=== PATIENT | female | born 1955 | race Hispanic/Latino ===

== ENCOUNTER 2019-04-10 13:38 | Emergency (ER) | payer OTHER, MEDICARE ==
[2019-04-10 14:03] LABS: CREATININE 0.8 mg/dL (0.5-1.5); POTASSIUM 3.7 mmol/L (3.5-5.1)
[2019-04-10 14:04] LABS: INR 0.99 (0.85-1.15); PROTHROMBIN TIME 10.4 SEC (9.6-11.6)
[2019-04-10 14:08] LABS: ALBUMIN 3.6 g/dL (3.5-5.0); BILIRUBIN,TOTAL 1.2 mg/dL (0.2-1.0); TOTAL PROTEIN, SERUM 7.7 g/dL (6.0-8.3)
[2019-04-10 14:13] LABS: BASOPHILS % (AUTO) 0.9 % (0.0-5.0); EOSINOPHILS % (AUTO) 1.6 % (0.0-8.0); HEMATOCRIT 43.1 % (36-48); LYMPHOCYTES % (AUTO) 35.3 % (21.0-51.0); MEAN CORPUSCULAR HEMOGLOBIN 32.8 pg (27.0-33.0); MEAN CORPUSCULAR HGB CONC 34.2 g/dL (32.0-36.0); MEAN CORPUSCULAR VOLUME 95.9 fL (79-99); MONOCYTES % (AUTO) 6.9 % (3.0-13.0); NEUTROPHILS % (AUTO) 55.3 % (40.0-77.0); NUCLEATED RED BLOOD CELLS 0.1 % (0.0-0.19); PLATELET COUNT (AUTO) 221 K/uL (130-400); RED BLOOD CELL COUNT(AUTO) 4.49 MIL/uL (4.00-5.50); RED CELL DISTRIBUTION WIDTH 13.3 % (11.0-15.5); WHITE BLOOD COUNT (AUTO) 6.4 K/uL (4.8-10.8)
[2019-04-10] MEDS ORDERED: LORAZEPAM 2 MG/ML 1 ML VIAL ONE (14:21)
== END 2019-04-10 16:37 | disposition home or self-care (01) ==
LOC: EDH 13:38
DX: R07.89 Other chest pain (principal); F32.9 Major depressive disorder, single episode, unspecified; F41.9 Anxiety disorder, unspecified; I10 Essential (primary) hypertension; K21.9 Gastro-esophageal reflux disease without esophagitis
CPT/HCPCS: 36415; 71045; 80053; 83880; 84484 ×2; 85025; 85610; 85730; 93005 ×2; 96374; 99285; J2060

== ENCOUNTER → 2020-02-24 | Outpatient (CLI) | payer OTHER, MEDICARE | END | disposition home or self-care (01) | LOC: RAH 14:28 | PROVIDERS: ATTEND Family Medicine | DX: Z12.31 Encounter for screening mammogram for malignant neoplasm of breast (principal) | CPT/HCPCS: 77067 ==

== ENCOUNTER → 2020-08-10 | Outpatient (CLI) | payer OTHER, MEDICARE ==
[~2020-08-10] MED LIST: IOHEXOL 350 MG/ML 100ML INFUS..BTL IV ONE
== END | disposition home or self-care (01) ==
LOC: RAH 10:53
PROVIDERS: ATTEND Family Medicine
DX: R91.1 Solitary pulmonary nodule (principal); K44.9 Diaphragmatic hernia without obstruction or gangrene; R79.89 Other specified abnormal findings of blood chemistry
CPT/HCPCS: 71275; Q9967

== ENCOUNTER 2020-11-04 15:55 | Emergency (ER) | payer OTHER, MEDICARE ==
[~2020-11-04] VITALS: Ht 162.6 cm; Wt 92.5 kg
[2020-11-04 15:57] VITALS: BP 111/69
[2020-11-04 16:43] LABS: BASOPHILS % (AUTO) 0.3 % (0.0-5.0); EOSINOPHILS % (AUTO) 1.4 % (0.0-8.0); HEMATOCRIT 40.7 % (36-48); LYMPHOCYTES % (AUTO) 34.7 % (21.0-51.0); MEAN CORPUSCULAR HEMOGLOBIN 31.8 pg (27.0-33.0); MEAN CORPUSCULAR HGB CONC 32.9 g/dL (32.0-36.0); MEAN CORPUSCULAR VOLUME 96.4 fL (79-99); MONOCYTES % (AUTO) 7.3 % (3.0-13.0); NEUTROPHILS % (AUTO) 56.1 % (40.0-77.0); PLATELET COUNT (AUTO) 235 K/uL (130-400); RED BLOOD CELL COUNT(AUTO) 4.22 MIL/uL (4.00-5.50); RED CELL DISTRIBUTION WIDTH 12.9 % (11.0-15.5); WHITE BLOOD COUNT (AUTO) 9.6 K/uL (4.8-10.8)
[2020-11-04 16:57] LABS: CREATININE 0.8 mg/dL (0.5-1.5); POTASSIUM 4.2 mmol/L (3.5-5.1)
[2020-11-04 17:01] LABS: ALBUMIN 3.5 g/dL (3.5-5.0); BILIRUBIN,TOTAL 0.7 mg/dL (0.2-1.0); TOTAL PROTEIN, SERUM 7.6 g/dL (6.0-8.3)
[2020-11-04] MEDS ORDERED: ONDANSETRON 4MG INJ IVP SCH (17:45)
[2020-11-04 18:05] LABS: APPEARANCE,URINE SLIGHTLY CLOUDY (CLEAR); BILIRUBIN,URINE Negative (NEGATIVE); COLOR,URINE Dark Yellow (YELLOW); GLUCOSE, URINE (UA) Negative (NEGATIVE); KETONES,URINE Trace mg/dL (NEGATIVE); LEUKOCYTE ESTERASE ,URINE Negative (NEGATIVE); NITRATE,URINE Negative (NEGATIVE); OCCULT BLOOD,URINE Trace (NEGATIVE); PH,URINE 5.5 (5.0-8.0); PROTEIN,URINE Trace mg/dL (NEGATIVE)
[2020-11-04 18:11] LABS: BACTERIA,URINE None Seen /HPF (None Seen); CALCIUM OXALATE CRYSTALS,UR Moderate /LPF (None Seen); MUCUS,URINE Few LPF (None Seen); RBC,URINE 0-1 /HPF (0-1); SQUAMOUS EPITHELIAL CELL,UR Rare /HPF (0-2); WBC,URINE None Seen /HPF (0-1)
[2020-11-04 18:17] VITALS: BP 135/84
[2020-11-04 19:31] VITALS: BP 127/69
[2020-11-04] MEDS ORDERED: HYDR25CA PO (19:49)
== END 2020-11-04 20:03 | disposition home or self-care (01) ==
LOC: EDH 15:55
DX: G43.909 Migraine, unspecified, not intractable, without status migrainosus (principal); F41.9 Anxiety disorder, unspecified; R11.0 Nausea; I10 Essential (primary) hypertension; F32.9 Major depressive disorder, single episode, unspecified; Z79.899 Other long term (current) drug therapy
CPT/HCPCS: 36415; 80053; 81001; 82150; 83690; 85025; 96374; 99283; J2405

== ENCOUNTER 2021-09-02 14:45 | Emergency (ER) | payer OTHER, MEDICARE ==
[~2021-09-02] VITALS: Ht 162.6 cm; Wt 91.6 kg
[~2021-09-02 14:45] MED LIST changes: +HYDR25CA PO; -IOHEXOL 350 MG/ML 100ML INFUS..BTL IV ONE
[2021-09-02 14:46] VITALS: BP 165/67
[2021-09-02 15:17] LABS: APPEARANCE,URINE Clear (CLEAR); BILIRUBIN,URINE Negative (NEGATIVE); COLOR,URINE Yellow (YELLOW); GLUCOSE, URINE (UA) Negative (NEGATIVE); KETONES,URINE Negative (NEGATIVE); LEUKOCYTE ESTERASE ,URINE Negative (NEGATIVE); NITRATE,URINE Negative (NEGATIVE); OCCULT BLOOD,URINE Small (NEGATIVE); PH,URINE 5.5 (5.0-8.0); PROTEIN,URINE Negative (NEGATIVE); UROBILINOGEN,URINE 0.2 mg/dL (0.2-1.0)
[2021-09-02 15:25] LABS: BACTERIA,URINE Rare /HPF (None Seen); WBC,URINE 0-1 /HPF (0-1)
[2021-09-02 15:26] LABS: MUCUS,URINE Few LPF (None Seen); SQUAMOUS EPITHELIAL CELL,UR Few /HPF (0-2)
[2021-09-02] MEDS ORDERED: 0.9%NACL 1000ML 1,000 ML IV ONE (16:00)
[2021-09-02 16:20] LABS: BASOPHILS % (AUTO) 0.4 % (0.0-5.0); EOSINOPHILS % (AUTO) 2.5 % (0.0-8.0); HEMATOCRIT 42.2 % (36-48); LYMPHOCYTES % (AUTO) 42.5 % (21.0-51.0); MEAN CORPUSCULAR HEMOGLOBIN 31.6 pg (27.0-33.0); MEAN CORPUSCULAR HGB CONC 32.7 g/dL (32.0-36.0); MEAN CORPUSCULAR VOLUME 96.6 fL (79-99); MONOCYTES % (AUTO) 5.6 % (3.0-13.0); NEUTROPHILS % (AUTO) 48.9 % (40.0-77.0); PLATELET COUNT (AUTO) 208 K/uL (130-400); RED BLOOD CELL COUNT(AUTO) 4.37 MIL/uL (4.00-5.50); WHITE BLOOD COUNT (AUTO) 7.1 K/uL (4.8-10.8)
[2021-09-02 16:23] LABS: CREATININE 0.7 mg/dL (0.5-1.5); POTASSIUM 4.5 mmol/L (3.5-5.1)
[2021-09-02 16:28] LABS: ALBUMIN 3.8 g/dL (3.5-5.0); BILIRUBIN,TOTAL 0.8 mg/dL (0.2-1.0); TOTAL PROTEIN, SERUM 7.6 g/dL (6.0-8.3)
[2021-09-02] MEDS ORDERED: KETOROLAC 15MG/ML VIAL (15MG/ML) IV ONE (17:30)
[2021-09-02] MEDS ORDERED: ONDANSETRON 4MG INJ IVP ONE (17:30)
[2021-09-02] MEDS ORDERED: MORPHINE 4 MG SYG IVP ONE (17:30)
[2021-09-02] MEDS ORDERED: TRAM50TA2 PO (18:35)
== END 2021-09-02 19:07 | disposition home or self-care (01) ==
LOC: EDH 14:45
DX: R10.9 Unspecified abdominal pain (principal); E78.00 Pure hypercholesterolemia, unspecified; F41.9 Anxiety disorder, unspecified; I10 Essential (primary) hypertension
CPT/HCPCS: 36415; 74176; 80053; 81001; 85025; 96374; 96375; 99284; J1885; J2270; J2405; J7030

== ENCOUNTER → 2022-08-18 | Outpatient (CLI) | payer OTHER, MEDICARE ==
[~2022-08-18] MED LIST changes: +APIX5TAB PO; +ATOR10TA69 PO; +CEPH500C2 PO; +D-ME118S56 PO; +DILT240C94 PO; +ESOM40CA54 PO; +GABA-529 PO; +TRAM50TA2 PO
[2022-08-18 12:51] LABS: ALBUMIN 3.4 g/dL (3.5-5.0); CREATININE 0.7 mg/dL (0.5-1.5); POTASSIUM 3.8 mmol/L (3.5-5.1); TOTAL PROTEIN, SERUM 7.2 g/dL (6.0-8.3)
== END | disposition home or self-care (01) ==
LOC: LAB 09:29
PROVIDERS: ATTEND Internal Medicine Cardiovascular Disease
DX: I10 Essential (primary) hypertension (principal); E78.00 Pure hypercholesterolemia, unspecified
CPT/HCPCS: 36415; 80053; 80061

== ENCOUNTER 2022-10-10 16:57 | Emergency (ER) | payer OTHER, MEDICARE ==
[~2022-10-10] VITALS: Ht 162.6 cm; Wt 97.5 kg
[~2022-10-10 16:57] MED LIST changes: +DILT240C81 PO; -DILT240C94 PO
[2022-10-10] MEDS ORDERED: ONDANSETRON 4MG INJ IVP ONE (18:30)
[2022-10-10 19:59] LABS: BASOPHILS % (AUTO) 0.2 % (0.0-5.0); EOSINOPHILS % (AUTO) 0.4 % (0.0-8.0); HEMATOCRIT 43.7 % (36-48); LYMPHOCYTES % (AUTO) 7.4 % (21.0-51.0); MEAN CORPUSCULAR HEMOGLOBIN 30.5 pg (27.0-33.0); MEAN CORPUSCULAR HGB CONC 32.7 g/dL (32.0-36.0); MEAN CORPUSCULAR VOLUME 93.2 fL (79-99); MONOCYTES % (AUTO) 3.4 % (3.0-13.0); NEUTROPHILS % (AUTO) 88.3 % (40.0-77.0); PLATELET COUNT (AUTO) 231 K/uL (130-400); RED BLOOD CELL COUNT(AUTO) 4.69 MIL/uL (4.00-5.50); WHITE BLOOD COUNT (AUTO) 9.5 K/uL (4.8-10.8)
[2022-10-10 20:18] LABS: CREATININE 0.7 mg/dL (0.5-1.5); POTASSIUM 3.9 mmol/L (3.5-5.1)
[2022-10-10 20:23] LABS: ALBUMIN 3.8 g/dL (3.5-5.0); TOTAL PROTEIN, SERUM 7.9 g/dL (6.0-8.3)
[2022-10-10] MEDS ORDERED: IOHEXOL-350 75 ML VIAL IV ONE (21:04)
[2022-10-10 22:45] VITALS: BP 151/78
[2022-10-10 23:08] LABS: APPEARANCE,URINE CLEAR (CLEAR); BILIRUBIN,URINE NEGATIVE (NEGATIVE); COLOR,URINE YELLOW (YELLOW); GLUCOSE, URINE (UA) NEGATIVE (NEGATIVE); KETONES,URINE 10 mg/dL (NEGATIVE); LEUKOCYTE ESTERASE ,URINE NEGATIVE Leu/uL (NEGATIVE); NITRATE,URINE NEGATIVE (NEGATIVE); OCCULT BLOOD,URINE MODERATE (NEGATIVE); PROTEIN,URINE 30 mg/dL (NEGATIVE); UROBILINOGEN,URINE 0.2 mg/dL (0.2-1.0)
[2022-10-10 23:17] LABS: MUCUS,URINE FEW LPF (None Seen); RBC,URINE 26-50 /HPF (0-1); SQUAMOUS EPITHELIAL CELL,UR RARE /HPF (0-2)
== END 2022-10-10 23:08 | disposition home or self-care (01) ==
LOC: EDH 16:57
DX: K44.9 Diaphragmatic hernia without obstruction or gangrene (principal); R11.2 Nausea with vomiting, unspecified; I10 Essential (primary) hypertension; F32.A Depression, unspecified; F41.9 Anxiety disorder, unspecified; Z79.899 Other long term (current) drug therapy; Z90.49 Acquired absence of other specified parts of digestive tract; Z20.822 Contact with and (suspected) exposure to COVID-19
CPT/HCPCS: 99285; 74177; 96374; 87635; 84484; 80053; 85025; 87880; 87804 ×2; 83605; 81001; 36415; 93005; C9803; J2405; Q9967

== ENCOUNTER → 2022-10-27 | Outpatient (CLI) | payer OTHER, MEDICARE | END | disposition home or self-care (01) | LOC: RAH 09:33 | PROVIDERS: ATTEND Family Medicine | DX: M25.511 Pain in right shoulder (principal); M25.512 Pain in left shoulder; M81.8 Other osteoporosis without current pathological fracture | CPT/HCPCS: 73030 ==

== ENCOUNTER → 2022-11-19 | Outpatient (CLI) | payer OTHER, MEDICARE ==
[2022-11-19 12:20] LABS: ALBUMIN 3.4 g/dL (3.5-5.0); CREATININE 0.8 mg/dL (0.5-1.5); POTASSIUM 4.2 mmol/L (3.5-5.1); TOTAL PROTEIN, SERUM 7.3 g/dL (6.0-8.3)
== END | disposition home or self-care (01) ==
LOC: LAB 08:29
PROVIDERS: ATTEND Internal Medicine Cardiovascular Disease
DX: E78.5 Hyperlipidemia, unspecified (principal)
CPT/HCPCS: 36415; 80053; 80061

== ENCOUNTER 2022-11-25 00:35 | Emergency (ER) | payer OTHER, MEDICARE ==
[~2022-11-25] VITALS: Ht 167.6 cm; Wt 102.1 kg
[2022-11-25 03:56] VITALS: BP 133/73
[2022-11-25] MEDS ORDERED: HYDROXYZINE 25 MG TABLET PO ONE (05:00)
[2022-11-25] MEDS ORDERED: HYDR50CA50 PO (05:14)
== END 2022-11-25 05:30 | disposition home or self-care (01) ==
LOC: EDH 00:35
DX: I10 Essential (primary) hypertension (principal); F41.9 Anxiety disorder, unspecified; E78.00 Pure hypercholesterolemia, unspecified; Z79.01 Long term (current) use of anticoagulants
CPT/HCPCS: 93005

== ENCOUNTER → 2023-07-06 | Outpatient (CLI) | payer OTHER, MEDICARE ==
[~2023-07-06] MED LIST changes: +HYDR50CA50 PO
[2023-07-06 16:39] LABS: ALBUMIN 3.2 g/dL (3.5-5.0); CREATININE 0.7 mg/dL (0.5-1.5)
== END | disposition home or self-care (01) ==
LOC: LAB 14:40
PROVIDERS: ATTEND Internal Medicine Cardiovascular Disease
DX: E78.00 Pure hypercholesterolemia, unspecified (principal)
CPT/HCPCS: 36415; 80053; 80061

== ENCOUNTER 2024-01-12 10:45 | Emergency (ER) | payer OTHER, MEDICARE ==
[~2024-01-12] VITALS: Ht 162.6 cm; Wt 92.5 kg
[~2024-01-12 10:45] MED LIST changes: -ESOM40CA54 PO; +ESOM40CA66 PO
[2024-01-12 10:48] VITALS: BP 143/67; PULSE 75; RESP 18; TEMP 97
[2024-01-12] MEDS: acetaMINOPHEN 500 MG TABLET PO ONE (11:18)
[2024-01-12] MEDS: PHENAZOPYRIDINE HCL 200 MG TABLET PO ONE (11:18)
[2024-01-12 11:19] LABS: BASOPHILS # (AUTO) 0.03 K/uL (0.00-0.20); BASOPHILS % (AUTO) 0.4 % (0.0-5.0); EOSINOPHILS % (AUTO) 1.3 % (0.0-8.0); HEMATOCRIT 41.5 % (36-48); IMMATURE GRANULOCYTE ABSOLUTE 0.02 K/uL (0-1); LYMPHOCYTES # (AUTO) 2.3 K/uL (1.0-4.8); LYMPHOCYTES % (AUTO) 30.2 % (21.0-51.0); MEAN CORPUSCULAR HEMOGLOBIN 32.6 pg (27.0-33.0); MEAN CORPUSCULAR VOLUME 98.8 fL (79-99); MONOCYTES # (AUTO) 0.5 K/uL (0.1-1.0); MONOCYTES % (AUTO) 6.1 % (3.0-13.0); NEUTROPHILS # (AUTO) 4.6 K/uL (1.8-7.7); NEUTROPHILS % (AUTO) 61.7 % (40.0-77.0); PLATELET COUNT (AUTO) 218 K/uL (130-400); RED CELL DISTRIBUTION WIDTH 13.4 % (11.0-15.5); WHITE BLOOD COUNT (AUTO) 7.5 K/uL (4.8-10.8)
[2024-01-12 11:23] LABS: POTASSIUM 4.1 mmol/L (3.5-5.1)
[2024-01-12 11:42] LABS: APPEARANCE,URINE CLOUDY (CLEAR); BILIRUBIN,URINE MODERATE mg/dL (NEGATIVE); COLOR,URINE YELLOW (YELLOW); GLUCOSE, URINE (UA) 100 mg/dL (NEGATIVE); KETONES,URINE 5 mg/dL (NEGATIVE); LEUKOCYTE ESTERASE ,URINE SMALL Leu/uL (NEGATIVE); NITRATE,URINE POSITIVE (NEGATIVE); OCCULT BLOOD,URINE LARGE (NEGATIVE); PROTEIN,URINE 100 mg/dL (NEGATIVE)
[2024-01-12 11:47] LABS: ADD UA MICROSCOPIC YES
[2024-01-12] MEDS ORDERED: PHEN-776 PO (12:32)
[2024-01-12] MEDS ORDERED: AMOX1TAB16 PO (12:32)
[2024-01-12 12:33] LABS: BACTERIA,URINE Few /HPF (None Seen); CALCIUM OXALATE CRYSTALS,UR Few /LPF (None Seen); WBC,URINE 26-50 /HPF (0-1)
[2024-01-12] MEDS: AMOX/CLAV 875/125MG TAB PO ONE (12:33)
== END 2024-01-12 12:54 | disposition home or self-care (01) ==
LOC: EDH 10:45
DX: N30.01 Acute cystitis with hematuria (principal); R30.0 Dysuria; E78.00 Pure hypercholesterolemia, unspecified; I10 Essential (primary) hypertension; F41.9 Anxiety disorder, unspecified; Z79.899 Other long term (current) drug therapy; Z90.49 Acquired absence of other specified parts of digestive tract; Z98.890 Other specified postprocedural states
CPT/HCPCS: 36415; 80048; 81001; 85025; 87086; 87186

== ENCOUNTER → 2024-06-03 | Outpatient (CLI) | payer OTHER, MEDICARE ==
[~2024-06-03] MED LIST changes: +AMOX1TAB16 PO; +PHEN-776 PO
--- NOTE | 2024-06-03 11:36 | HMCIMG ---
SCREENING MAMMOGRAM REASON: Annual Exam COMPARISON: 09/15/2022 TECHNIQUE: CC and MLO views of the bilateral breasts were performed.CAD was performed as well. FINDINGS: Parenchymal density: The breasts are almost entirely fatty. There are no focal mass lesions. There are no pathologic appearing calcifications. There is no evidence of architectural distortion or skin thickening. IMPRESSION: Normal screening mammogram The patient was entered into a reminder system with a target due date for their next mammogram. BI-RADS CATEGORY 1: NEGATIVE Recommend monthly self breast exam as well as annual clinical examination. A negative x-ray should not delay biopsy if a dominant or clinically suspicious mass is present, since 8-10% of cancers are not identified by mammography. Dense breasts particularly, may obscure an underlying neoplasm. Some of these may be detected clinically and therefore, clinical examination is an essential part of breast evaluation.
== END | disposition home or self-care (01) ==
LOC: RAH 10:00
PROVIDERS: ATTEND Family Medicine
DX: Z12.31 Encounter for screening mammogram for malignant neoplasm of breast (principal); R92.313 Mammographic fatty tissue density, bilateral breasts
CPT/HCPCS: 77067

== ENCOUNTER 2025-01-02 17:00 | Inpatient (IN) | payer OTHER, MEDICAID ==
[~2025-01-02] VITALS: Ht 162.6 cm; Wt 88.0 kg
--- NOTE | 2025-01-02 17:24 | EKG ---
[facility] Test Date: 2025-01-02 Test Time: 17:19:22 Pat Name: CJ ROLLINS Department: ED Room: 320 Gender: F [employer] Player: [id number] : 1955 Requested By: MILAN SALAS Order Number: [id number] Reading MD: Samuel Ugalde Measurements Intervals Dante Rate: 77 P: 58 VA: 89 QRS: -31 QRSD: 95 T: 6 QT: 392 QTc: 443 Interpretive Statements Sinus rhythm Left axis deviation Compared to ECG 11/25/2022 03:55:50 Left-axis deviation now present Electronically Signed On 01-03-2025 19:41:33 CDT by Samuel Ugalde Please click the below link to view image of tracing.
[2025-01-02 17:54] LABS: IMMATURE GRANULOCYTE ABSOLUTE 0.02 K/uL (0-1); NUCLEATED RED BLOOD CELLS 0.0 % (0.0-0.19); PLATELET COUNT (AUTO) 173 K/uL (130-400); RED BLOOD CELL COUNT(AUTO) 3.92 MIL/uL (4.00-5.50); RED CELL DISTRIBUTION WIDTH 12.7 % (11.0-15.5); WHITE BLOOD COUNT (AUTO) 7.0 K/uL (4.8-10.8)
[2025-01-02 18:02] LABS: CREATININE 0.7 mg/dL (0.5-1.0); GLOMERULAR FILTR. RATE CALC 93.0 mL/min (>90); GLUCOSE,RANDOM 110.0 mg/dL (70-105); SODIUM SERUM 141.0 mmol/L (136-145); UREA NITROGEN, BLOOD 14.0 mg/dL (7-18)
[2025-01-02 18:15] LABS: APPEARANCE,URINE CLEAR (CLEAR); GLUCOSE, URINE (UA) NEGATIVE (NEGATIVE); LEUKOCYTE ESTERASE ,URINE NEGATIVE Leu/uL (NEGATIVE); NITRATE,URINE NEGATIVE (NEGATIVE); OCCULT BLOOD,URINE +- (TRACE) (NEGATIVE)
[2025-01-02 18:18] LABS: ADD UA MICROSCOPIC YES
[2025-01-02 18:20] LABS: SQUAMOUS EPITHELIAL CELL,UR RARE /HPF (0-2)
[2025-01-02] MEDS ORDERED: IOHEXOL 350 MG/ML 100ML INFUS..BTL IV ONE (19:44)
--- NOTE | 2025-01-02 19:52 | ERN ---
ED Note History of Present Illness Stated Complaint: BLOODY STOOLS X 3 WEEKS Chief Complaint: Bloody Stool Time Seen by MD: 17:04 Time Seen by Midlevel: 17:06 Dictation: 69-year-old female sent from PCP's office for evaluation of dark stools for the last three weeks. 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 Patient denies any abdominal discomfort. Allergies: Coded Allergies: No Known Drug Allergies (Unverified Allergy, 09/28/12) Home Meds Reported Medications Mecobalamin (B12 Active) 1,000 Mcg Tab.chew, 1 TAB PO DAILY for 30 Days, #30 TAB 0 Refills 01/02/25 [Folate] No Conflict Check, 400 MG PO DAILY 01/02/25 Rivaroxaban (Xarelto) 20 Mg Tablet, 1 TAB PO DAILY for 30 Days, #30 TAB 0 Refills with food 01/02/25 Alendronate Sodium (Alendronate Sodium) 70 Mg Tablet, 1 TAB PO QWEEK for 28 Days, #4 TAB 0 Refills in the morning, at least 30 minutes before the first food, beverage, or medication of the day 01/02/25 [Ergocalciferol] No Conflict Check, 1.25 MG PO QWEEK 01/02/25 Losartan Potassium (Losartan Potassium) 100 Mg Tablet, 1 TAB PO HS for 30 Days, #30 TAB 0 Refills 01/02/25 Hydrochlorothiazide (Hydrochlorothiazide) 12.5 Mg Tablet, 1 TAB PO DAILY PRN for IF SBP GREATER THAN 180 for 30 Days, #30 TAB 0 Refills 01/02/25 Diltiazem HCl (Diltiazem ER) 240 Mg Cap.er.deg, 1 CAP PO DAILY for 30 Days, #30 CAP 0 Refills 01/02/25 Atorvastatin Calcium (LIPITOR) 10 Mg Tab, 1 TAB PO HS for 30 Days, #30 TAB 0 Refills 01/02/25 Buspirone HCl (Buspirone HCl) 10 Mg Tablet, 1 TAB PO BID for 30 Days, #60 TAB 0 Refills 01/02/25 Esomeprazole Magnesium (Esomeprazole Magnesium) 40 Mg Capsule.dr, 1 CAP PO DAILY for 30 Days, #30 CAP 0 Refills 01/02/25 Gabapentin (Neurontin) 300 Mg Capsule, 1 CAP PO TID for 30 Days, #90 CAP 0 Refills 01/02/25 Discontinued Reported Medications Diltiazem HCl (Diltiazem ER) 240 Mg Capsule.er, 1 CAP PO QDP 03/16/22 Atorvastatin Calcium (Atorvastatin Calcium) 10 Mg Tablet, 1 TAB PO QDP 03/16/22 Gabapentin (Gabapentin) 100 Mg Capsule, 100 MG PO HS, CAP 03/16/22 Esomeprazole Magnesium (Esomeprazole Magnesium) 40 Mg Capsule.dr, 1 CAP PO QDP 03/16/22 Cephalexin (Cephalexin) 500 Mg Capsule, 1 CAP PO BID 03/16/22 D-Methorphan Hb/P-Epd HCl/Bpm (Ugvysnllox-Xmvjepxzwsi-Il Syr) 118 Ml Syrup, 10 ML PO Q6HPRN PRN for COUGH 03/16/22 Discontinued Scripts Phenazopyridine HCl (Pyridium) 200 Mg Tablet, 200 MG PO TID for painful urination for 3 Days, #9 TAB 0 Refills Prov:DIEUDONNE BELL TAILOR FITTER 01/12/24 Amoxicillin/Potassium Clav (Amox Tr-K Clv 875-125 mg Tab) 875 Mg-125 Mg Tablet, 1 EACH PO BID for 7 Days, #14 TAB 0 Refills Prov:DIEUDONNE BELL TAILOR FITTER 01/12/24 Hydroxyzine Pamoate (Hydroxyzine Pamoate) 50 Mg Capsule, 50 MG PO BID for Anxiety , #30 CAP 2 Refills Prov:ROB LOFTON Sr., MD 11/25/22 Apixaban (Eliquis) 5 Mg Tablet, 5 MG PO BID for RIght leg DVT, #90 TAB Prov:INOCENCIA GAO ELECTRICAL CONTROLS ASSEMBLER 03/19/22 Apixaban (Eliquis) 5 Mg Tablet, 10 MG PO BID, #10 TAB take 10 remaining tablet 10 mg po bid then change to 5 mg po bid for 3 months Prov:INOCENCIA GAO ELECT[employer]ICAL CONTROLS ASSEMBLER 03/19/22 Tramadol HCl (Ultram) 50 Mg Tab, 50 MG PO Q6H PRN for PAIN, #7 TAB Prov:CAROLYN URBINA CAB WORKER 09/02/21 Hydroxyzine Pamoate (Vistaril) 25 Mg Capsule, 25 MG PO TID for anxiety, #15 CAP Prov:RICHIE MARSHALL MD 11/04/20 Past Medical History Past Medical History: Anxiety, Diverticulosis, DVT, Fibromyalgia, GERD, High Cholesterol, Hypertension Surgical History: Cholecystectomy, Other Surgical History Other: HERNIA REPAIR, INTERNAL HEMMORHOIDS Family History: Negative Social History: Negative History: Not Applicable Review of System Dictation Constitutional: Negative for fever,chills, and weight loss Eyes: Negative for injury, pain,redness, and discharge ENT: Negative for injury,pain or swelling Cardiovascular: Negative for chest pain, palpitations, and edema Respiratory: Negative for shortness of breath, cough, and wheezing, Abdomen/GI: Negative for abdominal pain, nausea, vomiting, diarrhea, and constipation Back: Negative for injury and pain : Negative for injury, bleeding and discharge MS/Extremity: Negative for injury and deformity Skin: Negative for rash, and discoloration Neuro: Negative for headache, weakness, numbness, tingling, and seizure Psych: Negative for suicide ideation, homicidal ideation, and hallucinations Review of Systems: was completed Initial Vital Sign VS Vital Signs Date Time Temp Pulse Resp B/P (MAP) Pulse Ox O2 Delivery O2 Flow Rate FiO2 01/02/25 17:01 98.6 91 16 158/74 96 Room Air 0 01/02/25 17:32 21 Physical Exam Dictation General: awake, alert, NAD Head/Face: Normocephalic, atraumatic Eyes: PERRL, EOMI, vision at baseline ENT: oral cavity clear, TMs clear, no signs of infection Neck: Trachea midline, supple, no nuchal rigidity Cardiovascular: RRR, normal S1/S2, No MRGs, no JVD Respiratory: CTAB, no respiratory distress, No rales or wheezes Abdomen: Soft, non-tender, non-distended, normal bowel sounds, no guarding or rebound. Skin: Warm, dry, normal turgor, no rash MS/Extremity: Pulses equal, no cyanosis, neurovascular intact, FROM Neuro: COAx4, GCS 15, strength 5/5, CN 2-12 intact, normal cerebellar exam, normal gait, Psych: Normal behavior, mood, and affect normal Results (Laboratory/Radiology) Laboratory/Radiology Laboratory Tests Test 01/02/25 15:27 01/02/25 17:22 01/02/25 17:43 Stool Occult Blood POSITIVE (NEGATIVE) H Urine Color YELLOW (YELLOW) Urine Appearance CLEAR (CLEAR) Urine pH 6.0 (5.0-8.0) Urine Specific [place] 1.031 (1.001-1.031) Urine Protein 10 mg/dL (NEGATIVE) H Urine Glucose (UA) NEGATIVE mg/dL (NEGATIVE) Urine Ketones NEGATIVE mg/dL (NEGATIVE) Urine Occult Blood +- (TRACE) (NEGATIVE) H Urine Nitrate NEGATIVE (NEGATIVE) Urine Bilirubin NEGATIVE mg/dL (NEGATIVE) Urine Urobilinogen 2.0 mg/dL (0.2-1.0) H Urine Leukocyte Esterase NEGATIVE Mary/uL Urine RBC 11-25 /HPF (0-1) H Urine WBC 2-5 /HPF (0-1) H Urine Squamous Epithelial Cells RARE /HPF (0-2) Urine Bacteria RARE /HPF (None Seen) Urine Hyaline Casts 2-5 /LPF (0-1 /LPF) H White Blood Count 7.0 K/uL (4.8-10.8) Red Blood Count 3.92 MIL/uL (4.00-5.50) L Hemoglobin 12.6 g/dL (12.0-16.0) Hematocrit 37.1 % (36-48) Mean Corpuscular Volume 94.6 fL (79-99) Mean Corpuscular Hemoglobin 32.1 pg (27.0-33.0) Mean Corpuscular Hemoglobin Concent 34.0 g/dL (32.0-36.0) Red Cell Distribution Width 12.7 % (11.0-15.5) Platelet Count 173 K/uL (130-400) Mean Platelet Volume 10.0 fL (7.5-10.5) Immature Granulocyte % (Auto) 0.3 % (0-1) Neutrophils (%) (Auto) 56.5 % (40.0-77.0) Lymphocytes (%) (Auto) 33.1 % (21.0-51.0) Monocytes (%) (Auto) 7.2 % (3.0-13.0) Eosinophils (%) (Auto) 2.6 % (0.0-8.0) Basophils (%) (Auto) 0.3 % (0.0-5.0) Neutrophils # (Auto) 3.9 K/uL (1.8-7.7) Lymphocytes # (Auto) 2.3 K/uL (1.0-4.8) Monocytes # (Auto) 0.5 K/uL (0.1-1.0) Eosinophils # (Auto) 0.18 K/uL (0.00-0.70) Basophils # (Auto) 0.02 K/uL (0.00-0.20) Absolute Immature Granulocyte (auto 0.02 K/uL (0-1) Nucleated Red Blood Cells 0.0 % (0.0-0.19) Sodium Level 141 mmol/L (136-145) Potassium Level 3.8 mmol/L (3.5-5.1) Chloride Level 107 mmol/L (101-111) Carbon Dioxide Level 28 mmol/L (21-32) Blood Urea Nitrogen 14 mg/dL (7-18) Creatinine 0.7 mg/dL (0.5-1.0) Glomerular Filtration Rate Calc 93 mL/min (>90) Random Glucose 110 mg/dL (70-105) H Total Calcium 9.0 mg/dL (8.5-10.1) Labs Reviewed?: Yes CT Scan Comment: [address] [address] IMAGING REPORT Signed PATIENT: CJ ROLLINS MR#: [id number] : 1955 SEX: F AGE: 69 LOCATION: [facility] ORDER 56 STATUS: [facility] REPORT#: [id number] SERVICE 55 REASON: gi bleed ORDERING PHYSICIAN: MILAN SALAS NP PROCEDURE: ABD PEL W - CT ABDOMEN/PELVIS W/CONTRAST EXAM: CT Abdomen and Pelvis with IV contrast CLINICAL HISTORY: Patient presents with gastrointestinal bleeding. TECHNIQUE: Post-contrast axial computed tomography images of the abdomen and pelvis with intravenous contrast. COMPARISON: None provided. FINDINGS: LUNG BASES: The lung bases appear clear. No pleural effusions are seen. LIVER: Unremarkable. GALLBLADDER AND BILE DUCTS: The gallbladder is surgically absent. No biliary ductal dilatation is evident. PANCREAS: Unremarkable. SPLEEN: Unremarkable. ADRENAL GLANDS: Unremarkable. KIDNEYS, URETERS, AND BLADDER: Right renal cyst in the lower pole measuring 0.6 x 0.6 x 0.6 cm. Left renal parapelvic cyst. The kidneys show no hydronephrosis or hydroureter. The urinary bladder is incompletely distended at the time of examination, limiting evaluation for possible wall thickening. In the appropriate clinical setting, mild cystitis cannot be excluded; recommended clinical correlation. STOMACH AND BOWEL: Colonic diverticulosis with short segment circumferential wall thickening in the sigmoid colon, with subtle pericolonic fat stranding concerning for sigmoid diverticulitis. Mild constipation. No evidence of bowel obstruction. APPENDIX: No evidence of acute appendicitis on CT examination. PERITONEUM: No free fluid. No free air. LYMPH NODES: No lymphadenopathy is evident. REPRODUCTIVE: Unremarkable as visualized. VASCULATURE: No evidence of abdominal aortic aneurysm. BONES: Multilevel mild degenerative changes of the spine. Mild lumbar levoscoliosis. No acute osseous pathology is evident. DIAPHRAGM: Elevated right hemidiaphragm. ABDOMINAL WALL: Moderate-sized hiatal hernia. IMPRESSION: Scattered colonic diverticula with questionable subtle acute sigmoid diverticulitis. No abscess or perforation. The gallbladder is surgically absent. Left renal parapelvic cyst. Right renal cortical cyst. Moderate-sized hiatal hernia. Elevated right hemidiaphragm. Urinary bladder incompletely distended; in the appropriate clinical setting, mild cystitis cannot be excluded. /[place] DICTATED BY: THUY WALKER Jr., MD DATE: 01/02/252221 ELECTRONICALLY SIGNED BY: THUY WALKER Jr., MD DATE: 01/02/252221 ED Course ED Course Orders Procedure Category Date Status Time Cbc With Differential LAB 01/02/25 Complete 17:09 Basic Metabolic Panel LAB 01/02/25 Complete 17:09 Occult Blood Stool LAB 01/02/25 Complete Single Only 17:09 12 Lead Ekg Tracing- EKG 01/02/25 Complete Technical 17:09 Urinalysis Profile LAB 01/02/25 Complete 17:56 Ct Abdomen/Pelvis CT 01/02/25 Resulted W/Contrast 17:56 Iohexol (Omnipaque) PHA 01/02/25 Complete 19:44 Metronidazole PHA 01/02/25 Complete 500mg/100ml Bag 21:28 Ceftriaxone 1g Vial PHA 01/02/25 Complete (Rocephine 1g Inj) 21:28 Current Medications Medications (Trade) Dose Ordered Sig/Richard Route PRN Reason Start Time Stop Time Status Last Admin Dose Admin Ceftriaxone Sodium (ROCEphine 1G INJ) 1 gm ONCE STAT IVPB 01/02/25 21:28 01/02/25 21:31 DC 01/02/25 21:51 Iohexol (Omnipaque) 35,000 mg STK-MED ONCE IV 01/02/25 19:44 01/02/25 19:44 DC Metronidazole/ Sodium Chloride (flaGYL) 500 mg ONCE STAT IV 01/02/25 21:28 01/02/25 21:31 DC 01/02/25 22:16 Vital Signs Date Time Temp Pulse Resp B/P (MAP) Pulse Ox O2 Delivery O2 Flow Rate FiO2 01/02/25 20:15 98.4 74 18 149/54 96 Room Air* 0 21 01/02/25 18:21 98.4 74 18 147/71 97 Room Air* 0 21 01/02/25 17:32 99.9 81 18 158/74 98 Room Air* 0 21 01/02/25 17:01 98.6 91 16 158/74 96 Room Air 0 Medical Decision Making MDM MDM: 69-year-old female sent from PCP's office for evaluation of dark stools for the last three weeks. 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 Patient denies any abdominal discomfort. Blood work unremarkable. CT scan is showing possible sigmoid diverticulitis. Occult blood is positive. On rectal exam there is no anamaria blood in rectal vault. Patient initiated on antibiotics. Patient will be admitted for diverticulitis started routine consult we will GI. Spoke to Levar LITTLE for benchmark, okay to admit. Differential diagnosis: GI bleed, hemorrhoids Rationale: Tests considered and ordered secondary to shared decision making include: Previous outside records reviewed: Old ER visits. Risk of complication and/or morbidity or mortality of patient management: None Medications-Per medication reconciliation Need for hospitalization: Patient does not meet criteria for hospitalization. Need for emergency major/minor surgery: No There are no social concerns with this patient. Prescription drug management Prescriptions will include symptomatic care Patient's prior external medical records from other ER visits were reviewed by me as indicated. Prior testing and results from previous visits were reviewed. Prior tests were taken into account with medical decision making and resource utilization, independent historian/historians were used to obtain complete medical history. I independently interpreted the test that were performed, results were reviewed by me and considered findings on radiology if ordered. Medical management and examination interpretation discussions were had by me with other qualified healthcare professionals as indicated for the patient's care. DX & DISP Disposition: Inpatient Decision to Admit Date: Jan 02, 2025 Decision to Admit Time: 22:24 Departure Impression: Primary Impression: Diverticulitis Additional Impression: GI bleed Condition: Stable Referrals: LEE PAULINO MD (PCP) Time of Disposition: 22:25 I have reviewed the case, and I agree with, Diagnosis and Plan MILAN SALAS NP Jan 02, 2025 19:52
--- NOTE | 2025-01-02 21:23 | HMCIMG ---
EXAM: CT Abdomen and Pelvis with IV contrast CLINICAL HISTORY: Patient presents with gastrointestinal bleeding. TECHNIQUE: Post-contrast axial computed tomography images of the abdomen and pelvis with intravenous contrast. COMPARISON: None provided. FINDINGS: LUNG BASES: The lung bases appear clear. No pleural effusions are seen. LIVER: Unremarkable. GALLBLADDER AND BILE DUCTS: The gallbladder is surgically absent. No biliary ductal dilatation is evident. PANCREAS: Unremarkable. SPLEEN: Unremarkable. ADRENAL GLANDS: Unremarkable. KIDNEYS, URETERS, AND BLADDER: Right renal cyst in the lower pole measuring 0.6 x 0.6 x 0.6 cm. Left renal parapelvic cyst. The kidneys show no hydronephrosis or hydroureter. The urinary bladder is incompletely distended at the time of examination, limiting evaluation for possible wall thickening. In the appropriate clinical setting, mild cystitis cannot be excluded; recommended clinical correlation. STOMACH AND BOWEL: Colonic diverticulosis with short segment circumferential wall thickening in the sigmoid colon, with subtle pericolonic fat stranding concerning for sigmoid diverticulitis. Mild constipation. No evidence of bowel obstruction. APPENDIX: No evidence of acute appendicitis on CT examination. PERITONEUM: No free fluid. No free air. LYMPH NODES: No lymphadenopathy is evident. REPRODUCTIVE: Unremarkable as visualized. VASCULATURE: No evidence of abdominal aortic aneurysm. BONES: Multilevel mild degenerative changes of the spine. Mild lumbar levoscoliosis. No acute osseous pathology is evident. DIAPHRAGM: Elevated right hemidiaphragm. ABDOMINAL WALL: Moderate-sized hiatal hernia. IMPRESSION: Scattered colonic diverticula with questionable subtle acute sigmoid diverticulitis. No abscess or perforation. The gallbladder is surgically absent. Left renal parapelvic cyst. Right renal cortical cyst. Moderate-sized hiatal hernia. Elevated right hemidiaphragm. Urinary bladder incompletely distended; in the appropriate clinical setting, mild cystitis cannot be excluded. /[place]
[2025-01-02] MEDS ORDERED: ESOM40CA66 PO (22:14)
[2025-01-02] MEDS ORDERED: ATOR10 PO (22:14)
[2025-01-02] MEDS ORDERED: MECO10005 PO (22:14)
[2025-01-02] MEDS ORDERED: BUSP10TA3 PO (22:14)
[2025-01-02] MEDS ORDERED: GABA300C PO (22:14)
[2025-01-02] MEDS ORDERED: DILT-118 PO (22:14)
[2025-01-02] MEDS ORDERED: ALEN70TA80 PO (22:14)
[2025-01-02] MEDS ORDERED: FOLATE PO (22:14)
[2025-01-02] MEDS ORDERED: HYDR12.54 PO (22:14)
[2025-01-02] MEDS ORDERED: RIVA20TA PO (22:14)
[2025-01-02] MEDS ORDERED: LOSA100T59 PO (22:14)
[2025-01-02] MEDS ORDERED: ERGOCALCIFEROL PO (22:14)
--- NOTE | 2025-01-02 22:46 | HP ---
[facility] HISTORY & PHYSICAL Date Patient Seen: Jan 02, 2025 Time of Visit: 22:45 Supervising Physician: [Dr. Gregorio Eli ] Primary Care Physician: [Dr. Shahla Acevedo ] Outpatient Specialists: [ ] Inpatient Consults: [Dr. Rey Chacko] PROBLEM LIST: GI bleed-POA Diverticulitis-POA HX of DVT on Xarelto PLAN: -Admit [facility] -Serial H&H q6h -Type and screen, transfuse if Hg drops below 7 -Avoid NSAIDs and blood thinner, hold Xarelto at this time -Consult GI, Dr. Chacko, appreciate recx; pending eval -IV fluids -Continue IV Rocephin and Flagyl for intra-abdominal coverage -Keep patient NPO -Manage abdominal pain and N/V PRN -IV Protonix BID HPI: [Patient is a 69-year-old female with PMH significant for left lower extremity DVT on Xarelto, HTN, HLD, and GERD who was presented to the ED concerning report of hematochezia and melena onset 3 weeks ago. Patient claims that in the beginning, she had been having black stool now she noticed it has become red with an average of 2 to 3 times a day of bowel movement. Pertinent positives include nausea and dizziness. Significant negatives are fever, chills, vomiting, abdominal pain , hemorrhoids or syncope. At the ED, her preliminary lab works were unremarkable, hemoglobin stable. However her FOBT was positive for occult. CT AP was significant for acute sigmoid diverticulitis without abscess or perforation. We will start the patient on IV Rocephin and Flagyl. Physical assessment was unrevealing without abdominal tenderness, signs of ischemia or peritonitis. Goals of care were discussed with the patient verbalizes understanding and agreement. PAST MEDICAL HX: see above PAST SURGICAL HX: noncontributory SOCIAL HISTORY: No tobacco, ETOH, or illicit drug use Coded Allergies: No Known Drug Allergies (Unverified Allergy, 09/28/12) REVIEW OF SYSTEMS: 12 point ROS reviewed with patient. Pertinent positives mentioned above. Otherwise negative. PHYSICAL EXAM: GENERAL: alert, awake oriented x 3 HEENT: EOMI, Sclera non icteric, moist mucosa NECK: Supple, no JVD, trachea midline LUNGS: Clear breath sounds bilaterally. No wheezes HEART: Regular rate and rhythm. Normal S1 and S2, without murmurs ABD: Abdomen soft, nontender. Bowel sounds present EXT: No clubbing cyanosis or edema NEURO: Alert and oriented to person, follows commands Vital Signs (last 8hr) Date Time Temp Pulse Resp B/P (MAP) Pulse Ox O2 Delivery O2 Flow Rate FiO2 01/02/25 20:15 98.4 74 18 149/54 96 Room Air* 0 21 01/02/25 18:21 98.4 74 18 147/71 97 Room Air* 0 01/02/25 17:32 99.9 81 18 158/74 98 Room Air* 0 01/02/25 17:01 98.6 91 16 158/74 96 Room Air 0 LABS: Hematology Labs: Test 01/02/25 17:43 Range/Units White Blood Count 7.0 4.8-10.8 K/uL Red Blood Count 3.92 L 4.00-5.50 MIL/uL Hemoglobin 12.6 12.0-16.0 g/dL Hematocrit 37.1 36-48 % Mean Corpuscular Volume 94.6 79-99 fL Mean Corpuscular Hemoglobin 32.1 27.0-33.0 pg Mean Corpuscular Hemoglobin Concent 34.0 32.0-36.0 g/dL Red Cell Distribution Width 12.7 11.0-15.5 % Platelet Count 173 130-400 K/uL Mean Platelet Volume 10.0 7.5-10.5 fL Immature Granulocyte % (Auto) 0.3 0-1 % Neutrophils (%) (Auto) 56.5 40.0-77.0 % Lymphocytes (%) (Auto) 33.1 21.0-51.0 % Monocytes (%) (Auto) 7.2 3.0-13.0 % Eosinophils (%) (Auto) 2.6 0.0-8.0 % Basophils (%) (Auto) 0.3 0.0-5.0 % Neutrophils # (Auto) 3.9 1.8-7.7 K/uL Lymphocytes # (Auto) 2.3 1.0-4.8 K/uL Monocytes # (Auto) 0.5 0.1-1.0 K/uL Eosinophils # (Auto) 0.18 0.00-0.70 K/uL Basophils # (Auto) 0.02 0.00-0.20 K/uL Absolute Immature Granulocyte (auto 0.02 0-1 K/uL Nucleated Red Blood Cells 0.0 0.0-0.19 % Chemistry Labs: Test 01/02/25 17:43 Range/Units Sodium Level 141 136-145 mmol/L Potassium Level 3.8 3.5-5.1 mmol/L Chloride Level 107 101-111 mmol/L Carbon Dioxide Level 28 21-32 mmol/L Blood Urea Nitrogen 14 7-18 mg/dL Creatinine 0.7 0.5-1.0 mg/dL Glomerular Filtration Rate Calc 93 >90 mL/min Random Glucose 110 H 70-105 mg/dL Total Calcium 9.0 8.5-10.1 mg/dL DIAGNOSTICS / RADIOLOGY RESULTS: [ ] PLAN NEURO: Minimize central acting medications as possible. Maintain fall precautions, adequate lighting during the day PULMONARY: Supplemental 02 as needed. Maintain aspiration precautions at all times CARDIOVASCULAR: Follow hemodynamics. Vital signs per facility protocol GI & NUTRITION: Continue with nutritional support. Continue stool softeners and laxatives as needed. KIDNEYS & ELECTROLYTES: Strict monitoring of intake, output and overall fluid balance. Avoid nephrotoxic medications to the extent possible. Medications to be dosed according to renal function. Monitor electrolytes and replace as needed ENDOCRINE: Maintain blood glucose between 100-180 at all times. Hypoglycemia protocol in place INFECTIOUS DISEASE: Trend temperature, WBC and procalcitonin level Follow cultures, deescalate antibiotics as soon as possible. Panculture if new onset fever ONCOLOGY/HEMATOLOGY/COAGULATION: Monitor for s/s of bleeding Monitor hemoglobin, coagulation studies as needed SKIN: Pressure ulcer prevention per facility protocol Specialty mattress ORTHO/REHAB: Continue PT/OT Prophylaxis: Continue GI and DVT prophylaxis. SCD, no AC due to GI bleed Code Status: Full Resuscitation Disposition: [facility] Jan 02, 2025 22:46
[2025-01-02] MEDS: 0.9%NACL 1000ML 1,000 ML IV SCH (23:17)
[2025-01-02 23:28] LABS: INR 1.03 (0.85-1.15)
--- NOTE | 2025-01-02 23:31 | NUR ---
PT CARE ASSUMED AT THIS TIME
--- NOTE | 2025-01-02 23:56 | NUR ---
REPORT GIVEN TO JB LOCKE AT THIS TIME
[2025-01-03] VITALS (7 sets, daily range): BP systolic 124–166; BP diastolic 72–80; PULSE 64–76; RESP 18–20; TEMP 97.5–98.3; O2SAT 95–96
--- NOTE | 2025-01-03 00:47 | NUR ---
ADMISSION NOTE PATIENT ARRIVED VIA STRETCHER ALERT AND ORIENTED X 4. PATIENT AMBULATED SELF TO ROOM, NURSE ASSISTED PATIENT TO BATHROOM TO VOID. PATIENT ASSISTED BACK TO BED, HANDHELD ASSIST. PATIENT INFUSING NS TO RIGHT HAND IV, NO REDNESS, NO SWELLING TO RIGHT HAND. PATIENT ARRIVED WITH ONLY BELONGING OF BLACK CELLPHONE. NO FAMILY PRESENT AT TIME OF ADMISSION. PATIENT IS GOOD HISTORIAN OF HEALTH. PATIENT STATED DOES NOT KNOW ANY OF THE NAMES OF HOME MEDICATIONS BECAUSE MEDICATIONS ARE GIVEN BY PROVIDER AND DAUGHTER. PATIENT STATES DOES NOT DRIVE, BUT DOES LIVE ON HER OWN. PATIENT ORIENTED TO PLAN OF CARE, ROOM, LIGHTING, TV, BATHROOM, IV PUMP, DIET, CALL BUTTON AND REMOTE CONTROL. BED ALARM ARMED, PATIENT INSTRUCTED TO CALL BY PUSHING RED BUTTON ON REMOTE TO NOTIFY STAFF MEMBER SO THAT STAFF MAY ASSIST WITH DISCONNECTING OF IV PUMP TO USE BATHROOM. CALL BUTTON AND PATIENT CELLPHONE WITHIN REACH ON BEDSIDE TABLE.
[2025-01-03 06:03] LABS: IMMATURE GRANULOCYTE ABSOLUTE 0.03 K/uL (0-1); NUCLEATED RED BLOOD CELLS 0.0 % (0.0-0.19); PLATELET COUNT (AUTO) 210 K/uL (130-400); RED BLOOD CELL COUNT(AUTO) 3.82 MIL/uL (4.00-5.50); RED CELL DISTRIBUTION WIDTH 12.6 % (11.0-15.5); WHITE BLOOD COUNT (AUTO) 7.2 K/uL (4.8-10.8)
--- NOTE | 2025-01-03 06:04 | NUR ---
BM NO BLACK OR BLOODY STOOL THROUGHOUT SHIFT SINCE ARRIVED FROM ED. PATIENT AWAKE, ALERT AND ORIENTED X 4, DENIES PAIN AT THIS TIME.
[2025-01-03 06:16] LABS: % IRON SATURATION 20.8 % (22-44); IRON, SERUM 52.0 mcg/dL (50-170)
[2025-01-03 06:20] LABS: CREATININE 0.8 mg/dL (0.5-1.0); GLOMERULAR FILTR. RATE CALC 79.0 mL/min (>90); GLUCOSE,RANDOM 80.0 mg/dL (70-105); PHOSPHORUS 3.0 mg/dL (2.5-4.9); SODIUM SERUM 144.0 mmol/L (136-145); UREA NITROGEN, BLOOD 11.0 mg/dL (7-18)
--- NOTE | 2025-01-03 13:20 | PN ---
[facility] PROGRESS NOTE Date Patient Seen: Jan 03, 2025 Time of Visit: 13:20 Supervising Physician: Dr. Gregorio Eli Primary Care Physician: Dr. Shahla Acevedo Inpatient Consults: [Dr. 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 AAOX3. States last blood tinged stool was last night. Per daughter, patient is not compliant with her home medication Xarelto and will say she takes it when she doesn't. Both patient and daughter poor historian, per chart review, patient had DVT and PE back in 2021. Hemoglobin 12.4. Complains of abdominal discomfort at times like a "pulling" sensation, but denies any nausea or vomiting. Pending GI to evaluate. PLAN: Repeat BLE venous doppler ordered Serial H&H q6h Transfuse if Hg drops below 7 Avoid NSAIDs and blood thinner, hold Xarelto at this time Follow GI recommendations IV fluids Continue IV Rocephin and Flagyl for intra-abdominal coverage Keep patient NPO Manage abdominal pain and N/V PRN IV Protonix BID REVIEW OF SYSTEMS: 12 point ROS reviewed with patient. Pertinent positives mentioned above. Ot herwise negative. PHYSICAL EXAM: GENERAL: alert, awake oriented x 3 HEENT: EOMI, Sclera non icteric, moist mucosa NECK: Supple, no JVD, trachea midline LUNGS: Clear breath sounds bilaterally. No wheezes HEART: Regular rate and rhythm. Normal S1 and S2, without murmurs ABD: Abdomen soft, nontender. Bowel sounds present EXT: No clubbing cyanosis or edema NEURO: Alert and oriented to person, follows commands Vital Signs (last 8hr) Date Time Temp Pulse Resp B/P (MAP) Pulse Ox O2 Delivery O2 Flow Rate FiO2 01/03/25 11:49 97.5 64 19 160/76 98 Room Air 21 01/03/25 08:00 98.1 67 20 156/72 96 Room Air 21 LABS: Hematology Labs: Test 01/03/25 11:55 01/03/25 05:26 Range/Units Hemoglobin 12.2 12.0-16.0 g/dL Hematocrit 37.6 36-48 % White Blood Count 7.2 4.8-10.8 K/uL Red Blood Count 3.82 L 4.00-5.50 MIL/uL Mean Corpuscular Volume 96.6 79-99 fL Mean Corpuscular Hemoglobin 32.5 27.0-33.0 pg Mean Corpuscular Hemoglobin Concent 33.6 32.0-36.0 g/dL Red Cell Distribution Width 12.6 11.0-15.5 % Platelet Count 210 130-400 K/uL Mean Platelet Volume 8.9 7.5-10.5 fL Immature Granulocyte % (Auto) 0.4 0-1 % Neutrophils (%) (Auto) 55.6 40.0-77.0 % Lymphocytes (%) (Auto) 35.0 21.0-51.0 % Monocytes (%) (Auto) 6.5 3.0-13.0 % Eosinophils (%) (Auto) 2.2 0.0-8.0 % Basophils (%) (Auto) 0.3 0.0-5.0 % Neutrophils # (Auto) 4.0 1.8-7.7 K/uL Lymphocytes # (Auto) 2.5 1.0-4.8 K/uL Monocytes # (Auto) 0.5 0.1-1.0 K/uL Eosinophils # (Auto) 0.16 0.00-0.70 K/uL Basophils # (Auto) 0.02 0.00-0.20 K/uL Absolute Immature Granulocyte (auto 0.03 0-1 K/uL Nucleated Red Blood Cells 0.0 0.0-0.19 % Chemistry Labs: Test 01/03/25 05:26 Range/Units Sodium Level 144 136-145 mmol/L Potassium Level 3.9 3.5-5.1 mmol/L Chloride Level 110 101-111 mmol/L Carbon Dioxide Level 27 21-32 mmol/L Blood Urea Nitrogen 11 7-18 mg/dL Creatinine 0.8 0.5-1.0 mg/dL Glomerular Filtration Rate Calc 79 >90 mL/min Random Glucose 80 70-105 mg/dL Total Calcium 8.8 8.5-10.1 mg/dL Phosphorus Level 3.0 2.5-4.9 mg/dL Magnesium Level 2.10 1.80-2.40 mg/dL Iron Level 52 50-170 mcg/dL Total Iron Binding Capacity 250 250-450 mcg/dL Percent Iron Saturation 20.8 L 22-44 % Coagulation Labs: Test 01/02/25 23:05 Range/Units Prothrombin Time 10.9 9.6-11.6 SEC Prothromb Time International Ratio 1.03 0.85-1.15 Activated Partial Thromboplast Time 25.1 L 26.3-35.5 SEC DIAGNOSTICS / RADIOLOGY RESULTS: REASON: gi bleed ORDERING PHYSICIAN: MILAN SALAS [employer] PROCEDURE: ABD PEL W - CT ABDOMEN/PELVIS W/CONTRAST ADDENDUM REPORT ADDENDUM: Results were shared by telephone at 22:26 pm on 01/02/25 and acknowledged by M[employer] F[employer]ER Milan Acosta. /[place] EXAM: CT Abdomen and Pelvis with IV contrast CLINICAL HISTORY: Patient presents with gastrointestinal bleeding. TECHNIQUE: Post-contrast axial computed tomography images of the abdomen and pelvis with intravenous contrast. COMPARISON: None provided. FINDINGS: LUNG BASES: The lung bases appear clear. No pleural effusions are seen. LIVER: Unremarkable. GALLBLADDER AND BILE DUCTS: The gallbladder is surgically absent. No biliary ductal dilatation is evident. PANCREAS: Unremarkable. SPLEEN: Unremarkable. ADRENAL GLANDS: Unremarkable. KIDNEYS, URETERS, AND BLADDER: Right renal cyst in the lower pole measuring 0.6 x 0.6 x 0.6 cm. Left renal parapelvic cyst. The kidneys show no hydronephrosis or hydroureter. The urinary bladder is incompletely distended at the time of examination, limiting evaluation for possible wall thickening. In the appropriate clinical setting, mild cystitis cannot be excluded; recommended clinical correlation. STOMACH AND BOWEL: Colonic diverticulosis with short segment circumferential wall thickening in the sigmoid colon, with subtle pericolonic fat stranding concerning for sigmoid diverticulitis. Mild constipation. No evidence of bowel obstruction. APPENDIX: No evidence of acute appendicitis on CT examination. PERITONEUM: No free fluid. No free air. LYMPH NODES: No lymphadenopathy is evident. REPRODUCTIVE: Unremarkable as visualized. VASCULATURE: No evidence of abdominal aortic aneurysm. BONES: Multilevel mild degenerative changes of the spine. Mild lumbar levoscoliosis. No acute osseous pathology is evident. DIAPHRAGM: Elevated right hemidiaphragm. ABDOMINAL WALL: Moderate-sized hiatal hernia. IMPRESSION: Scattered colonic diverticula with questionable subtle acute sigmoid diverticulitis. No abscess or perforation. The gallbladder is surgically absent. Left renal parapelvic cyst. Right renal cortical cyst. Moderate-sized hiatal hernia. Elevated right hemidiaphragm. Urinary bladder incompletely distended; in the appropriate clinical setting, mild cystitis cannot be excluded. /Arabi DICTATED BY: THUY WALKER Jr., MD DATE: 01/02/252225 ELECTRONICALLY SIGNED BY: DATE: EXAM: CT Abdomen and Pelvis with IV contrast CLINICAL HISTORY: Patient presents with gastrointestinal bleeding. TECHNIQUE: Post-contrast axial computed tomography images of the abdomen and pelvis with intravenous contrast. COMPARISON: None provided. FINDINGS: LUNG BASES: The lung bases appear clear. No pleural effusions are seen. LIVER: Unremarkable. GALLBLADDER AND BILE DUCTS: The gallbladder is surgically absent. No biliary ductal dilatation is evident. PANCREAS: Unremarkable. SPLEEN: Unremarkable. ADRENAL GLANDS: Unremarkable. KIDNEYS, URETERS, AND BLADDER: Right renal cyst in the lower pole measuring 0.6 x 0.6 x 0.6 cm. Left renal parapelvic cyst. The kidneys show no hydronephrosis or hydroureter. The urinary bladder is incompletely distended at the time of examination, limiting evaluation for possible wall thickening. In the appropriate clinical setting, mild cystitis cannot be excluded; recommended clinical correlation. STOMACH AND BOWEL: Colonic diverticulosis with short segment circumferential wall thickening in the sigmoid colon, with subtle pericolonic fat stranding concerning for sigmoid diverticulitis. Mild constipation. No evidence of bowel obstruction. APPENDIX: No evidence of acute appendicitis on CT examination. PERITONEUM: No free fluid. No free air. LYMPH NODES: No lymphadenopathy is evident. REPRODUCTIVE: Unremarkable as visualized. VASCULATURE: No evidence of abdominal aortic aneurysm. BONES: Multilevel mild degenerative changes of the spine. Mild lumbar levoscoliosis. No acute osseous pathology is evident. DIAPHRAGM: Elevated right hemidiaphragm. ABDOMINAL WALL: Moderate-sized hiatal hernia. IMPRESSION: Scattered colonic diverticula with questionable subtle acute sigmoid diverticulitis. No abscess or perforation. The gallbladder is surgically absent. Left renal parapelvic cyst. Right renal cortical cyst. Moderate-sized hiatal hernia. Elevated right hemidiaphragm. Urinary bladder incompletely distended; in the appropriate clinical setting, mild cystitis cannot be excluded. PLAN NEURO: Minimize central acting medications as possible. Maintain fall precautions, adequate lighting during the day PULMONARY: Supplemental 02 as needed. Maintain aspiration precautions at all times CARDIOVASCULAR: Follow hemodynamics. Vital signs per facility protocol GI & NUTRITION: Continue with nutritional support. Continue stool softeners and laxatives as needed. KIDNEYS & ELECTROLYTES: Strict monitoring of intake, output and overall fluid balance. Avoid nephrotoxic medications to the extent possible. Medications to be dosed according to renal function. Monitor electrolytes and replace as needed ENDOCRINE: Maintain blood glucose between 100-180 at all times. Hypoglycemia protocol in place INFECTIOUS DISEASE: Trend temperature, WBC and procalcitonin level Follow cultures, deescalate antibiotics as soon as possible. Panculture if new onset fever ONCOLOGY/HEMATOLOGY/COAGULATION: Monitor for s/s of bleeding Monitor hemoglobin, coagulation studies as needed SKIN: Pressure ulcer prevention per facility protocol Specialty mattress ORTHO/REHAB: Continue PT/OT Prophylaxis: Continue GI and DVT prophylaxis. SCD, no AC due to GI bleed Code Status: Full Resuscitation Disposition: WILLIS HASSAN NP Jan 03, 2025 13:20
--- NOTE | 2025-01-03 15:00 | NUR ---
BEHAVIOR Patient removed IV line. Will attempt IV access for upcoming antibiotic dose. Midline order in place and anticipate placement sometime later this afternoon/early evening. Addendum: 01/03/25 at 2007 by RACHEL GO RN RN OMIT INCORRECT CHART
--- NOTE | 2025-01-03 16:40 | CONS ---
GASTROENTEROLOGY CONSULTATION NOTE Date of Consultation: Jan 03, 2025 Time of Consultation: 16:37 History of Present Illness: [This is a 69 yo female patient with past medical history for presented to the emergency room with complaints of having dark stools for the last three weeks. Patient is currently on Xarelto for treatment of DVT of left lower extremity. Patient has past medical history of hypertension, hyperlipidemia, and GERD. Initial labs WBCs 7.0, hemoglobin 12.6 has slowly trended down to 12.2 today, and platelets of 210. Chemistries unremarkable. PT 10.9, INR 1.03, APTT 25.1. Urine positive for trace of blood with rare urine bacteria. Patient positive for fecal occult blood. CT of abdomen and pelvis significant for scattered colonic diverticula with questionable subtle acute sigmoid diverticulitis. No abscess or perforation. Moderate size hiatal hernia. Elevated right hemidiaphragm. Urinary bladder incompletely distended; in the appropriate clinical setting, mild cystitis can not be excluded. Patient found awake alert and oriented in semi-Mix's. In no acute distress. Vital signs are stable. Bilateral breath sounds are clear abdomen is soft with active bowel sounds. CT scan results explained to patient and recommendations for antibiotic therapy with follow-up as outpatient for evaluation of resolution of sigmoid diverticulitis explained to patient and family patient reported she had had a colonoscopy about three or four months ago. Upon review, patient had colonoscopy on 06/21/24 and was found to have small mouth diverticulosis in sigmoid, descending, transverse, and ascending colon. Explained to patient that a repeat CT scan would be warranted to assess for resolution of diverticulitis. Patient verbalized understanding and agreement. ] Review of Systems: CONSTITUTIONAL: No malaise or change in sensation of wellbeing. ENMT: No rhinorrhea, otorrhea, sinus pain, ear ache. CARDIOVASCULAR: No angina, palpitations, orthopnea or paroxysmal dyspnea. RESPIRATORY: No SOB. GASTROINTESTINAL: No abdominal pain, nausea, vomiting, diarrhea, hematemesis, melena or change in the patient's habitual bowel movements consistency/number. GENITOURINARY: No dysuria, hematuria or change in bladder continence. MUSCULOSKELETAL: No new muscle pain or decrease in muscular strength. No new joint swelling, redness or tenderness. SKIN: No new rash. Past Medical History: [ Hypertension, anxiety, GERD, Hyperlipidemia] Past Surgical History: [Cholecystectomy 09/30/22, hernia repair, bilateral tubal ligation ] Past Social History: [ Social History: Marital Status: . Blood Transfusions: no. Cocaine: no. Homosexual: no. Multiple sexual partners: no. Smoking: no Are you a: nonsmoker.Alcohol: no. IV Drugs: no. Tattoos: no. Caffeine: yes Daily Intake.. Travel: no. Occup. exposure: no. ROS:] Family History: [Family History: Father: Mother: 2 son(s) , 4 daughter(s) . Patient's father was diagnosed with stomach CA around age 70. Coded Allergies: No Known Drug Allergies (Unverified Allergy, 09/28/12) Physical Exam: GEN: Awake, alert, oriented in person, time and place, and in no acute distress. HEENT: No sinus tenderness. Tympanic membranes were not examined. No rhinorrhea. Oral pharyngeal mucosa is pink, moist and within normal limits. Neck is supple with no cervical lymphadenopathy, thyromegaly or JVD. CHEST: Inspection, palpation and percussion of the chest were unremarkable. Lung auscultation revealed normal breath sounds bilaterally. CARDIAC: PMI is within normal limits. Heart sounds are regular. Normal S1, S2. No gallop or murmur. ABD: Soft, non-tender and not distended. No peritoneal signs on palpation. No organomegaly. Normal bowel sounds. EXT: No cyanosis or clubbing. No edema. SKIN: Intact. No rashes. JOINTS: No evidence of synovitis or acute arthritis. NEURO: Alert and oriented to name, place and person. Cranial nerve examination is unremarkable. No focal motor deficits. Normal speech. Gait is normal. Strength is normal. Vital Sign (Last 24 Hours) 01/03/25 01/03/25 00:30 16:00 Temp 98.2 Pulse 66 Resp 19 B/P (MAP) 158/79 Pulse Ox 97 O2 Delivery Room Air O2 Flow Rate 0 FiO2 21 Intake & Output (last 24hrs) 01/02/25 01/02/25 01/03/25 15:00 23:00 07:00 Intake Total 450.0 ml Balance 450.0 ml Laboratory: [ ] Laboratory: Test 01/03/25 11:55 01/03/25 05:26 01/02/25 23:05 8/18/25 17:22 Range/Units Hemoglobin 12.2 12.0-16.0 g/dL Hematocrit 37.6 36-48 % White Blood Count 7.2 4.8-10.8 K/uL Red Blood Count 3.82 L 4.00-5.50 MIL/uL Mean Corpuscular Volume 96.6 79-99 fL Mean Corpuscular Hemoglobin 32.5 27.0-33.0 pg Mean Corpuscular Hemoglobin Concent 33.6 32.0-36.0 g/dL Red Cell Distribution Width 12.6 11.0-15.5 % Platelet Count 210 130-400 K/uL Mean Platelet Volume 8.9 7.5-10.5 fL Immature Granulocyte % (Auto) 0.4 0-1 % Neutrophils (%) (Auto) 55.6 40.0-77.0 % Lymphocytes (%) (Auto) 35.0 21.0-51.0 % Monocytes (%) (Auto) 6.5 3.0-13.0 % Eosinophils (%) (Auto) 2.2 0.0-8.0 % Basophils (%) (Auto) 0.3 0.0-5.0 % Neutrophils # (Auto) 4.0 1.8-7.7 K/uL Lymphocytes # (Auto) 2.5 1.0-4.8 K/uL Monocytes # (Auto) 0.5 0.1-1.0 K/uL Eosinophils # (Auto) 0.16 0.00-0.70 K/uL Basophils # (Auto) 0.02 0.00-0.20 K/uL Absolute Immature Granulocyte (auto 0.03 0-1 K/uL Nucleated Red Blood Cells 0.0 0.0-0.19 % Sodium Level 144 136-145 mmol/L Potassium Level 3.9 3.5-5.1 mmol/L Chloride Level 110 101-111 mmol/L Carbon Dioxide Level 27 21-32 mmol/L Blood Urea Nitrogen 11 7-18 mg/dL Creatinine 0.8 0.5-1.0 mg/dL Glomerular Filtration Rate Calc 79 >90 mL/min Random Glucose 80 70-105 mg/dL Total Calcium 8.8 8.5-10.1 mg/dL Phosphorus Level 3.0 2.5-4.9 mg/dL Magnesium Level 2.10 1.80-2.40 mg/dL Iron Level 52 50-170 mcg/dL Total Iron Binding Capacity 250 250-450 mcg/dL Percent Iron Saturation 20.8 L 22-44 % Prothrombin Time 10.9 9.6-11.6 SEC Prothromb Time International Ratio 1.03 0.85-1.15 Activated Partial Thromboplast Time 25.1 L 26.3-35.5 SEC Urine Color YELLOW YELLOW Urine Appearance CLEAR CLEAR Urine pH 6.0 5.0-8.0 Urine Specific Roy 1.031 1.001-1.031 Urine Protein 10 H NEGATIVE mg/dL Urine Glucose (UA) NEGATIVE NEGATIVE mg/dL Urine Ketones NEGATIVE NEGATIVE mg/dL Urine Occult Blood +- (TRACE) H NEGATIVE Urine Nitrate NEGATIVE NEGATIVE Urine Bilirubin NEGATIVE NEGATIVE mg/dL Urine Urobilinogen 2.0 H 0.2-1.0 mg/dL Urine Leukocyte Esterase NEGATIVE NEGATIVE Mary/uL Urine RBC 11-25 H 0-1 /HPF Urine WBC 2-5 H 0-1 /HPF Urine Squamous Epithelial Cells RARE 0-2 /HPF Urine Bacteria RARE None Seen /HPF Urine Hyaline Casts 2-5 H 0-1 /LPF /LPF Test 01/02/25 15:27 Range/Units Stool Occult Blood POSITIVE H NEGATIVE Current Medications Medications (Trade) Dose Ordered Sig/Richard Route PRN Reason Start Time Stop Time Status Last Admin Dose Admin Acetaminophen (TYLenol 325MG TAB) 650 mg Q6H PRN PO FEVER/MILD PAIN LEVEL 1-3 01/02/25 22:30 02/01/25 22:29 Buspirone HCl (BUspar) 10 mg BID PO 01/03/25 21:00 02/02/25 20:59 Ceftriaxone Sodium (ROCEphine 1G INJ) 1 gm ONCE STAT IVPB 01/02/25 21:28 01/02/25 21:31 DC 01/02/25 21:51 1 GM Ceftriaxone Sodium (Rocephin 2gm Inj) 2 gm Q24H IVPB 01/03/25 21:00 01/13/25 20:59 Diltiazem HCl (CARDIzem 120MG CD) 240 mg DAILY PO 01/04/25 09:00 02/03/25 08:59 Gabapentin (NEURontin 300 MG CAP) 300 mg TID PO 01/03/25 21:00 02/02/25 20:59 Hydralazine HCl (APRESOLine 20MG INJ) 10 mg Q6H PRN IV SBP GREATER THAN 180 01/02/25 22:30 02/01/25 22:29 Insulin Human Regular (humuLIN R 100 UNIT/ML 3ML) INSULIN SLIDING SCAL... ACHS SQ 01/03/25 07:30 02/02/25 07:29 Labetalol HCl (TRANdate 20MG SYG) 10 mg Q2H PRN IV SBP GREATER THAN 160 01/02/25 22:30 02/01/25 22:29 Losartan Potassium (CozAAR 100MG TAB) 100 mg HS PO 01/03/25 21:00 02/02/25 20:59 Metronidazole/ Sodium Chloride (flaGYL) 500 mg ONCE STAT IV 01/02/25 21:28 01/02/25 21:31 DC 01/02/25 22:16 500 MG Metronidazole/ Sodium Chloride (flaGYL) 500 mg Q8H IV 01/03/25 06:00 01/13/25 05:59 01/03/25 15:00 500 MG Ondansetron HCl (zoFRAN 4MG INJ) 4 mg Q6H PRN IVP NAUSEA/VOMITING 01/02/25 22:30 02/01/25 22:29 Pantoprazole Sodium (PROTonix 40MG INJ) 40 mg BID IVP 01/02/25 22:30 02/01/25 22:29 01/03/25 09:49 40 MG Sodium Chloride 1,000 ml @ 75 mls/hr [id number] IV 01/02/25 22:30 02/01/25 22:29 01/02/25 23:17 75 MLS/HR Diagnostics / Radiology: [COPY/PASTE HERE IF NO REPORTS PLEASE DELETE SECTION] Assessment: [ Melena Diverticulitis Hypertension' Hyperlipidemia ] Plan: Case discuss with Dr. Kumari [NO GI endoscopic intervention at this time Recommend patient continue with antibiotic treatment Gi Prophylaxis bid Patient is to f/u at [facility] as outpatient for further evaluation of diverticulitis. Possible need for outpatient colonoscopy in 4-6 weeks. Please call with questions, concerns, and change in clinical status and any overt gi bleeding Thank you for this consult. ] MARCIA AN NP Jan 03, 2025 16:40
--- NOTE | 2025-01-03 19:35 | NUR ---
BEHAVIOR While performing admission on another patient, staff reported to nurse that patient Midline catheter was partially out. supervisor tree trimming contacted and received instructions to place another order for placement and that [facility] nurses' would be contacted. Addendum: 01/03/25 at 2005 by RACHEL GO RN RN *omit INCORRECT CHART
[2025-01-03] MEDS: GABAPENTIN 300 MG CAPSULE PO SCH (21:00)
[2025-01-04] VITALS (9 sets, daily range): BP systolic 117–145; BP diastolic 59–75; PULSE 65–73; RESP 16–20; TEMP 97.6–98.2; O2SAT 94–95
[2025-01-04 06:39] LABS: NUCLEATED RED BLOOD CELLS 0.0 % (0.0-0.19); PLATELET COUNT (AUTO) 210.0 K/uL (130-400); RED BLOOD CELL COUNT(AUTO) 3.78 MIL/uL (4.00-5.50); RED CELL DISTRIBUTION WIDTH 12.8 % (11.0-15.5); WHITE BLOOD COUNT (AUTO) 6.7 K/uL (4.8-10.8)
[2025-01-04 06:56] LABS: ASPARTATE AMINOTRANSFERASE 15.0 U/L (10-37); CREATININE 0.7 mg/dL (0.5-1.0); GLOMERULAR FILTR. RATE CALC 93.0 mL/min (>90); GLUCOSE,RANDOM 80.0 mg/dL (70-105); SODIUM SERUM 142.0 mmol/L (136-145); TOTAL PROTEIN, SERUM 6.0 g/dL (6.0-8.3); UREA NITROGEN, BLOOD 9.0 mg/dL (7-18)
--- NOTE | 2025-01-04 11:24 | PN ---
[facility] PROGRESS NOTE Date Patient Seen: Jan 04, 2025 Time of Visit: 11:24 Supervising Physician: Dr. Gregorio Eli Primary Care Physician: Dr. Shahla Acevedo Inpatient Consults: [Dr. 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 AAOX3. Denies any abdominal pain. Will start on clear liquid and advance as tolerated. Continues on IV ABX. WBC 6.7. RLE venous doppler positive for DVT. CTA chest ordered to evaluate for PE. Hematology consulted for AC recommendations. Hemoglobin stable at 12.2. Denies any more bloody stools. Daughter at bedside, questions answered. PLAN: CTA chest to rule out PE Start on clear liquids, advance as tolerated Consult oncology/hematology for AC recommendations Serial H&H q6h Transfuse if Hg drops below 7 Avoid NSAIDs and blood thinner, hold Xarelto at this time Follow GI recommendations IV fluids Continue IV Rocephin and Flagyl for intra-abdominal coverage Manage abdominal pain and N/V PRN IV Protonix BID REVIEW OF SYSTEMS: 12 point ROS reviewed with patient. Pertinent positives mentioned above. Otherwise negative. PHYSICAL EXAM: GENERAL: alert, awake oriented x 3 HEENT: EOMI, Sclera non icteric, moist mucosa NECK: Supple, no JVD, trachea midline LUNGS: Clear breath sounds bilaterally. No wheezes HEART: Regular rate and rhythm. Normal S1 and S2, without murmurs ABD: Abdomen soft, nontender. Bowel sounds present EXT: No clubbing cyanosis or edema NEURO: Alert and oriented to person, follows commands Vital Signs (last 8hr) Date Time Temp Pulse Resp B/P (MAP) Pulse Ox O2 Delivery O2 Flow Rate FiO2 01/04/25 10:31 94 Room Air* 0 21 01/04/25 04:44 97.7 73 18 124/65 94 Room Air LABS: Hematology Labs: Test 01/04/25 05:59 01/03/25 05:26 Range/Units White Blood Count 6.7 4.8-10.8 K/uL Red Blood Count 3.78 L 4.00-5.50 MIL/uL Hemoglobin 12.2 12.0-16.0 g/dL Hematocrit 35.6 L 36-48 % Mean Corpuscular Volume 94.2 79-99 fL Mean Corpuscular Hemoglobin 32.3 27.0-33.0 pg Mean Corpuscular Hemoglobin Concent 34.3 32.0-36.0 g/dL Red Cell Distribution Width 12.8 11.0-15.5 % Platelet Count 210 130-400 K/uL Mean Platelet Volume 9.1 7.5-10.5 fL Nucleated Red Blood Cells 0.0 0.0-0.19 % Immature Granulocyte % (Auto) 0.4 0-1 % Neutrophils (%) (Auto) 55.6 40.0-77.0 % Lymphocytes (%) (Auto) 35.0 21.0-51.0 % Monocytes (%) (Auto) 6.5 3.0-13.0 % Eosinophils (%) (Auto) 2.2 0.0-8.0 % Basophils (%) (Auto) 0.3 0.0-5.0 % Neutrophils # (Auto) 4.0 1.8-7.7 K/uL Lymphocytes # (Auto) 2.5 1.0-4.8 K/uL Monocytes # (Auto) 0.5 0.1-1.0 K/uL Eosinophils # (Auto) 0.16 0.00-0.70 K/uL Basophils # (Auto) 0.02 0.00-0.20 K/uL Absolute Immature Granulocyte (auto 0.03 0-1 K/uL Chemistry Labs: Test 01/04/25 05:59 01/03/25 05:26 Range/Units Sodium Level 142 136-145 mmol/L Potassium Level 3.9 3.5-5.1 mmol/L Chloride Level 109 101-111 mmol/L Carbon Dioxide Level 26 21-32 mmol/L Blood Urea Nitrogen 9 7-18 mg/dL Creatinine 0.7 0.5-1.0 mg/dL Glomerular Filtration Rate Calc 93 >90 mL/min Random Glucose 80 70-105 mg/dL Total Calcium 8.4 L 8.5-10.1 mg/dL Magnesium Level 2.00 1.80-2.40 mg/dL Total Bilirubin 0.9 0.2-1.0 mg/dL Aspartate Amino Transf (AST/SGOT) 15 10-37 U/L Alanine Aminotransferase (ALT/SGPT) 13 12-78 U/L Alkaline Phosphatase 73 50-136 U/L Total Protein 6.0 6.0-8.3 g/dL Albumin 2.7 L 3.5-5.0 g/dL Phosphorus Level 3.0 2.5-4.9 mg/dL Iron Level 52 50-170 mcg/dL Total Iron Binding Capacity 250 250-450 mcg/dL Percent Iron Saturation 20.8 L 22-44 % Coagulation Labs: Test 01/02/25 23:05 Range/Units Prothrombin Time 10.9 9.6-11.6 SEC Prothromb Time International Ratio 1.03 0.85-1.15 Activated Partial Thromboplast Time 25.1 L 26.3-35.5 SEC DIAGNOSTICS / RADIOLOGY RESULTS: PROCEDURE: VENOUS LAVERN - US VENOUS DOPPLER BILATERAL ADDENDUM REPORT ADDENDUM: Results were shared by telephone at 2:52 pm on 01-04-25 and acknowledged by Nurse Ms CunninghamTatianna Mixa /[place] EXAMINATION: SPECTRAL DOPPLER ULTRASOUND EXAMINATION OF THE BILATERAL LOWER EXTREMITY VEINS. CLINICAL HISTORY: Pain. COMPARISON: None provided. TECHNIQUE: Real-time ultrasound scan of the veins of the bilateral lower extremity with color Doppler flow, spectral waveform analysis and compression. FINDINGS: DEEP VEINS: The left common femoral, superficial femoral, and left popliteal veins are echolucent and compressible. There is normal color Doppler flow throughout. The visualized calf veins appear patent. The right common femoral and popliteal veins are partially compressible and there is partial flow on augmentation. SUPERFICIAL VEINS: The greater saphenous veins are patent and compressible. SOFT TISSUES: No popliteal fossa cyst or other abnormalities. IMPRESSION: Partial deep vein thrombosis in the right common femoral and popliteal veins. No deep vein thrombosis in the remainder of the bilateral lower extremity. No superficial thrombophlebitis in the bilateral lower extremity. /[place] DICTATED BY: THUY WALKER Jr., MD DATE: 01/04/25 1454 ELECTRONICALLY SIGNED BY: DATE: EXAMINATION: SPECTRAL DOPPLER ULTRASOUND EXAMINATION OF THE BILATERAL LOWER EXTREMITY VEINS. CLINICAL HISTORY: Pain. COMPARISON: None provided. TECHNIQUE: Real-time ultrasound scan of the veins of the bilateral lower extremity with color Doppler flow, spectral waveform analysis and compression. FINDINGS: DEEP VEINS: The left common femoral, superficial femoral, and left popliteal veins are echolucent and compressible. There is normal color Doppler flow throughout. The visualized calf veins appear patent. The right common femoral and popliteal veins are partially compressible and there is partial flow on augmentation. SUPERFICIAL VEINS: The greater saphenous veins are patent and compressible. SOFT TISSUES: No popliteal fossa cyst or other abnormalities. IMPRESSION: Partial deep vein thrombosis in the right common femoral and popliteal veins. No deep vein thrombosis in the remainder of the bilateral lower extremity. No superficial thrombophlebitis in the bilateral lower extremity. /[place] PLAN NEURO: Minimize central acting medications as possible. Maintain fall precautions, adequate lighting during the day PULMONARY: Supplemental 02 as needed. Maintain aspiration precautions at all times CARDIOVASCULAR: Follow hemodynamics. Vital signs per facility protocol GI & NUTRITION: Continue with nutritional support. Continue stool softeners and laxatives as needed. KIDNEYS & ELECTROLYTES: Strict monitoring of intake, output and overall fluid balance. Avoid nephrotoxic medications to the extent possible. Medications to be dosed according to renal function. Monitor electrolytes and replace as needed ENDOCRINE: Maintain blood glucose between 100-180 at all times. Hypoglycemia protocol in place INFECTIOUS DISEASE: Trend temperature, WBC and procalcitonin level Follow cultures, deescalate antibiotics as soon as possible. Panculture if new onset fever ONCOLOGY/HEMATOLOGY/COAGULATION: Monitor for s/s of bleeding Monitor hemoglobin, coagulation studies as needed SKIN: Pressure ulcer prevention per facility protocol Specialty mattress ORTHO/REHAB: Continue PT/OT Prophylaxis: Continue GI and DVT prophylaxis. SCD, no AC due to GI bleed Code Status: Full Resuscitation Disposition: WILLIS HASSAN NP Jan 04, 2025 11:24
--- NOTE | 2025-01-04 13:23 | HMCIMG ---
EXAMINATION: SPECTRAL DOPPLER ULTRASOUND EXAMINATION OF THE BILATERAL LOWER EXTREMITY VEINS. CLINICAL HISTORY: Pain. COMPARISON: None provided. TECHNIQUE: Real-time ultrasound scan of the veins of the bilateral lower extremity with color Doppler flow, spectral waveform analysis and compression. FINDINGS: DEEP VEINS: The left common femoral, superficial femoral, and left popliteal veins are echolucent and compressible. There is normal color Doppler flow throughout. The visualized calf veins appear patent. The right common femoral and popliteal veins are partially compressible and there is partial flow on augmentation. SUPERFICIAL VEINS: The greater saphenous veins are patent and compressible. SOFT TISSUES: No popliteal fossa cyst or other abnormalities. IMPRESSION: Partial deep vein thrombosis in the right common femoral and popliteal veins. No deep vein thrombosis in the remainder of the bilateral lower extremity. No superficial thrombophlebitis in the bilateral lower extremity. /[place]
[2025-01-04] MEDS ORDERED: IOHEXOL-350 75 ML VIAL IV ONE (15:40)
--- NOTE | 2025-01-04 15:57 | NUR ---
TAKEN OFF UNIT IN W/C FOR CTA
--- NOTE | 2025-01-04 16:59 | HMCIMG ---
EXAM: CTA Chest with and without Intravenous Contrast for PE evaluation CLINICAL HISTORY: rule out PE TECHNIQUE: Axial CTA images of the chest with and without intravenous contrast using a pulmonary embolism protocol. Multiplanar reconstructed images were created and reviewed. COMPARISON: None provided. FINDINGS: PULMONARY ARTERIES: No evidence of central or segmental pulmonary embolism is seen. AORTA: Atherosclerotic calcifications in the aorta and its major branches. There is no evidence for aneurysm or dissection of the thoracic aorta. LUNGS: 0.7 cm nodule in the posterobasal segment of the left lower lobe. Recommend repeat CT examination of the chest at 6 months. PLEURAL SPACES: No evidence of pneumothorax. No pleural effusion. HEART: Heart size is within normal limits. Atherosclerosis of the coronary arteries. No significant pericardial effusion. LYMPH NODES: No lymphadenopathy is evident. BONES: No focal osseous abnormality or acute fracture. UPPER ABDOMEN: Left pelvocaliectasis may be related to a left UPJ stricture. Clinical point with CT urography may be obtained on a nonemergent basis. Gallbladder surgically absent. Moderate hiatal hernia. IMPRESSION: 1. No pulmonary embolism. 2. 7 mm left lower lobe nodule, recommend follow-up chest CT in 6 months. /[place]
[2025-01-05] VITALS (8 sets, daily range): BP systolic 114–125; BP diastolic 50–57; PULSE 63–68; RESP 16–19; TEMP 97.5–98; O2SAT 97–100
[2025-01-05 05:55] LABS: NUCLEATED RED BLOOD CELLS 0.0 % (0.0-0.19); PLATELET COUNT (AUTO) 188.0 K/uL (130-400); RED BLOOD CELL COUNT(AUTO) 3.73 MIL/uL (4.00-5.50); RED CELL DISTRIBUTION WIDTH 12.7 % (11.0-15.5); WHITE BLOOD COUNT (AUTO) 6.8 K/uL (4.8-10.8)
[2025-01-05 06:12] LABS: ASPARTATE AMINOTRANSFERASE 16.0 U/L (10-37); CREATININE 0.7 mg/dL (0.5-1.0); GLOMERULAR FILTR. RATE CALC 93.0 mL/min (>90); GLUCOSE,RANDOM 83.0 mg/dL (70-105); SODIUM SERUM 143.0 mmol/L (136-145); TOTAL PROTEIN, SERUM 6.1 g/dL (6.0-8.3); UREA NITROGEN, BLOOD 6.0 mg/dL (7-18)
--- NOTE | 2025-01-05 08:59 | CONS ---
LOCATION: [facility] REFERRING PHYSICIAN: Terrell. REASON FOR CONSULTATION: Hypercoagulable state. HISTORY OF PRESENT ILLNESS: This is a 69-year-old patient with a history of DVT, on Xarelto; hypertension; hyperlipidemia and GERD, presented to the ER with bright red rectal bleeding and melena that started actually 3 weeks ago and she has black tarry stools. She came to the ER with upper GI bleed and workup shows she has got a DVT and diverticulitis, and we were asked to see her for evaluation. PAST MEDICAL HISTORY: History of DVT, history of GERD. PAST SURGICAL HISTORY: Per accompanying records. MEDICATIONS: She has been on Xarelto. ALLERGIES: None known. FAMILY HISTORY: Negative for hypercoagulable state. Negative for PE. SOCIAL HISTORY: Does not smoke or drink. Retired. Lives with her family. REVIEW OF SYSTEMS: HEENT: Negative. CARDIOVASCULAR: Negative for chest pain, palpitation, or PND. PULMONARY: Negative for cough. GASTROINTESTINAL: Positive for rectal bleeding. GENITOURINARY: Negative for hematuria or dysuria. PHYSICAL EXAMINATION: VITAL SIGNS: Blood pressure 149/54, pulse 74, respirations 18. HEENT: Benign. NECK: Supple. CHEST: Clear. ABDOMEN: Soft and nontender. EXTREMITIES: Show edema in leg. NEUROLOGIC: Intact. LABORATORY DATA: CBC: WBC 7.2, hemoglobin 12, platelets 210,000. Chemistries reviewed. IMPRESSION: * Acute upper GI bleed. * Hypercoagulable state with DVT, sigmoid diverticulitis, history of PE, bronchitis, obesity. The patient is noncompliant with her meds. PLAN: I agree with the GI workup. Protonix IV. Transfuse as needed. Antibiotics for the diverticulitis. I put an IVC filter to protect her from the DVT. Ultimately, she will need to be on long-term anticoagulation once she recovers from the GI bleed. We will follow with you. Thank you very much. TID: [id number] RECEIPT: [id number]
--- NOTE | 2025-01-05 13:57 | NUR ---
SPOKE TO AGENTS' RECORDS CLERK TO SCHEDULE IVC FILTER TOMORROW. A/P AGENTS' RECORDS CLERK NO IR MD AVAILABLE UNTIL THURSDAY. INFORMED RAMON LOCOMOTIVE OBSERVER; PER LOCOMOTIVE OBSERVER ORDER GIVEN FOR STRICT BED REST AND TO SCHEDULE PROCEDURE FOR THURSDAY
--- NOTE | 2025-01-05 14:29 | NUR ---
PER RAMON GRIFFIN OK TO TRANSFER TO [facility] FOR IVC FILTER PLACEMENT
--- NOTE | 2025-01-05 14:51 | PN ---
[facility] PROGRESS NOTE Date Patient Seen: Jan 05, 2025 Time of Visit: 14:50 Supervising Physician: Dr. Mikey Gleason Primary Care Physician: Dr. Shahla Acevedo Inpatient Consults: [Dr. 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 AAOX3. Denies any abdominal pain. Tolerating clear liquids, will advance to soft high fiber diet. Continues on IV ABX. RLE venous doppler positive for DVT. CTA chest negative for PE. Hematology consulted and recommended IVC filter. Hemoglobin stable at 11.8. Denies any more bloody stools. Had brown colored stool today. No family at bedside. PLAN: IVC filter insertion by IR CTA chest to rule out PE negative Advance diet to high fiber diet Consult oncology/hematology for AC recommendations Transfuse if Hg drops below 7 Avoid NSAIDs and blood thinner, hold Xarelto at this time Follow GI recommendations Continue IV Rocephin and Flagyl for intra-abdominal coverage Manage abdominal pain and N/V PRN IV Protonix BID REVIEW OF SYSTEMS: 12 point ROS reviewed with patient. Pertinent positives mentioned above. Otherwise negative. PHYSICAL EXAM: GENERAL: alert, awake oriented x 3 HEENT: EOMI, Sclera non icteric, moist mucosa NECK: Supple, no JVD, trachea midline LUNGS: Clear breath sounds bilaterally. No wheezes HEART: Regular rate and rhythm. Normal S1 and S2, without murmurs ABD: Abdomen soft, nontender. Bowel sounds present EXT: No clubbing cyanosis or edema NEURO: Alert and oriented to person, follows commands Vital Signs (last 8hr) Date Time Temp Pulse Resp B/P (MAP) Pulse Ox O2 Delivery O2 Flow Rate FiO2 01/05/25 09:16 100 Room Air* 0 21 LABS: Hematology Labs: Test 01/05/25 05:42 Range/Units White Blood Count 6.8 4.8-10.8 K/uL Red Blood Count 3.73 L 4.00-5.50 MIL/uL Hemoglobin 11.8 L 12.0-16.0 g/dL Hematocrit 34.9 L 36-48 % Mean Corpuscular Volume 93.6 79-99 fL Mean Corpuscular Hemoglobin 31.6 27.0-33.0 pg Mean Corpuscular Hemoglobin Concent 33.8 32.0-36.0 g/dL Red Cell Distribution Width 12.7 11.0-15.5 % Platelet Count 188 130-400 K/uL Mean Platelet Volume 8.8 7.5-10.5 fL Nucleated Red Blood Cells 0.0 0.0-0.19 % Chemistry Labs: Test 01/05/25 05:42 01/04/25 15:39 Range/Units Sodium Level 143 136-145 mmol/L Potassium Level 4.3 3.5-5.1 mmol/L Chloride Level 110 101-111 mmol/L Carbon Dioxide Level 26 21-32 mmol/L Blood Urea Nitrogen 6 L 7-18 mg/dL Creatinine 0.7 0.5-1.0 mg/dL Glomerular Filtration Rate Calc 93 >90 mL/min Random Glucose 83 70-105 mg/dL Total Calcium 8.6 8.5-10.1 mg/dL Magnesium Level 2.10 1.80-2.40 mg/dL Total Bilirubin 0.8 0.2-1.0 mg/dL Aspartate Amino Transf (AST/SGOT) 16 10-37 U/L Alanine Aminotransferase (ALT/SGPT) 11 L 12-78 U/L Alkaline Phosphatase 71 50-136 U/L Total Protein 6.1 6.0-8.3 g/dL Albumin 2.8 L 3.5-5.0 g/dL Whole Blood Glucose 73 70-110 MG/DL DIAGNOSTICS / RADIOLOGY RESULTS: REASON: rule out PE ORDERING PHYSICIAN: WILLIS HENDRICKS SUPERVISOR PARTIAL DENTURE DEPARTMENT PROCEDURE: [facility] PE - CT CHEST PE PROTOCOL WWO CONT EXAM: CTA Chest with and without Intravenous Contrast for PE evaluation CLINICAL HISTORY: rule out PE TECHNIQUE: Axial CTA images of the chest with and without intravenous contrast using a pulmonary embolism protocol. Multiplanar reconstructed images were created and reviewed. COMPARISON: None provided. FINDINGS: PULMONARY ARTERIES: No evidence of central or segmental pulmonary embolism is seen. AORTA: Atherosclerotic calcifications in the aorta and its major branches. There is no evidence for aneurysm or dissection of the thoracic aorta. LUNGS: 0.7 cm nodule in the posterobasal segment of the left lower lobe. Recommend repeat CT examination of the chest at 6 months. PLEURAL SPACES: No evidence of pneumothorax. No pleural effusion. HEART: Heart size is within normal limits. Atherosclerosis of the coronary arteries. No significant pericardial effusion. LYMPH NODES: No lymphadenopathy is evident. BONES: No focal osseous abnormality or acute fracture. UPPER ABDOMEN: Left pelvocaliectasis may be related to a left UPJ stricture. Clinical point with CT urography may be obtained on a nonemergent basis. Gallbladder surgically absent. Moderate hiatal hernia. IMPRESSION: 1. No pulmonary embolism. 2. 7 mm left lower lobe nodule, recommend follow-up chest CT in 6 months. PLAN NEURO: Minimize central acting medications as possible. Maintain fall precautions, adequate lighting during the day PULMONARY: Supplemental 02 as needed. Maintain aspiration precautions at all times CARDIOVASCULAR: Follow hemodynamics. Vital signs per facility protocol GI & NUTRITION: Continue with nutritional support. Continue stool softeners and laxatives as needed. KIDNEYS & ELECTROLYTES: Strict monitoring of intake, output and overall fluid balance. Avoid nephrotoxic medications to the extent possible. Medications to be dosed according to renal function. Monitor electrolytes and replace as needed ENDOCRINE: Maintain blood glucose between 100-180 at all times. Hypoglycemia protocol in place INFECTIOUS DISEASE: Trend temperature, WBC and procalcitonin level Follow cultures, deescalate antibiotics as soon as possible. Panculture if new onset fever ONCOLOGY/HEMATOLOGY/COAGULATION: Monitor for s/s of bleeding Monitor hemoglobin, coagulation studies as needed SKIN: Pressure ulcer prevention per facility protocol Specialty mattress ORTHO/REHAB: Continue PT/OT Prophylaxis: Continue GI and DVT prophylaxis. SCD, no AC due to GI bleed Code Status: Full Resuscitation Disposition: WILLIS HASSAN NP Jan 05, 2025 14:51
--- NOTE | 2025-01-05 17:58 | NUR ---
Strict Bed rest pending filter placement. Please send order again if needed.
--- NOTE | 2025-01-05 18:40 | NUR ---
INFORMED BY [employer] MAT INSPECTOR NO INTERVENTIONAL RADIOLOGIST WILL BE AVAILABLE TOMORROW OR ALL OF NEXT WEEK AT [facility]
[2025-01-06 03:01] VITALS: BP 117/50; PULSE 64; RESP 21; TEMP 97.9
[2025-01-06 05:31] LABS: NUCLEATED RED BLOOD CELLS 0.0 % (0.0-0.19); PLATELET COUNT (AUTO) 171.0 K/uL (130-400); RED BLOOD CELL COUNT(AUTO) 3.63 MIL/uL (4.00-5.50); RED CELL DISTRIBUTION WIDTH 13.0 % (11.0-15.5); WHITE BLOOD COUNT (AUTO) 6.8 K/uL (4.8-10.8)
[2025-01-06 05:46] LABS: CREATININE 0.6 mg/dL (0.5-1.0); GLOMERULAR FILTR. RATE CALC 97.0 mL/min (>90); GLUCOSE,RANDOM 90.0 mg/dL (70-105); SODIUM SERUM 141.0 mmol/L (136-145); UREA NITROGEN, BLOOD 9.0 mg/dL (7-18)
[2025-01-06 08:00] VITALS: BP 120/60; PULSE 61; RESP 18; TEMP 97; O2SAT 96
--- NOTE | 2025-01-06 08:02 | NUR ---
PATIENT UPDATE PT WITHOUT ANY COMPLAINTS OF ABDOMINAL PAIN, STARTED ON A HIGH FIBER, GI SOFT BLAND DIET, TOLERATED WELL. ONGOING IVF DISCONTINUED. PT INSTRUCTED ON BEDREST STATUS BEC OF THE BLOOD CLOT ON THE RLE. BEDSIDE COMMODE PROVIDED FOR PATIENT USE, PT VERY COMPLIANT. PENDING AN IVC FILTER PLACEMENT BY IR ON THURSDAY -01/10/25.
--- NOTE | 2025-01-06 08:14 | PN ---
SUBJECTIVE: The patient was admitted with a GI bleed. She is much better. She is on IV antibiotics. She has a DVT of the right lower extremity. Recommending a filter. PHYSICAL EXAMINATION: GENERAL: Shows a pleasant woman. VITAL SIGNS: Blood pressure 117/50, pulse 64, respirations 24. HEENT: Benign. CHEST: Clear. ABDOMEN: Soft. EXTREMITIES: Shows swelling of the leg. NEUROLOGIC: Intact. LABORATORY DATA: Hemoglobin is stable at 11. IMPRESSION: * Acute GI bleed. * Acute sigmoid diverticulitis, on antibiotics. * Persistent right lower extremity deep vein thrombosis, history of pulmonary embolism, bronchitis, obesity. PLAN: Continue antibiotics. Would place an IVC filter as soon as Interventional Radiology is available. The patient is otherwise stable. TID: [id number] RECEIPT: [id number]
--- NOTE | 2025-01-06 09:17 | NUR ---
PATIENT HAS CARDIZEM DUE THIS MORNING. BP 120/60 HR 61. CALLED [facility] AND PER HEALTH PROGRAM SPECIALIST WE WILL HOLD AT THIS TIME. WILL MONITOR PATIENT.
--- NOTE | 2025-01-06 11:31 | PN ---
[facility] PROGRESS NOTE Date Patient Seen: Jan 06, 2025 Time of Visit: 11:31 Supervising Physician: Dr. Mikey Gleason Primary Care Physician: Dr. Shahla Acevedo Inpatient Consults: [Dr. 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 AAOX3. States she is tolerating high fiber diet. No episodes of melena or hematochezia reported. Pending for IR to insert IVC filter which will likely be inserted until Thursday due to no IR available. PLAN: Bedrest for now until IVC filter is inserted IVC filter insertion by IR Continue IV Rocephin and Flagyl for intra-abdominal coverage (Day #4) Continue on high fiber diet Consult oncology/hematology for AC recommendations Transfuse if Hg drops below 7 Avoid NSAIDs and blood thinner, hold Xarelto at this time Follow GI recommendations Manage abdominal pain and N/V PRN IV Protonix BID REVIEW OF SYSTEMS: 12 point ROS reviewed with patient. Pertinent positives mentioned above. Otherwise negative. PHYSICAL EXAM: GENERAL: alert, awake oriented x 3 HEENT: EOMI, Sclera non icteric, moist mucosa NECK: Supple, no JVD, trachea midline LUNGS: Clear breath sounds bilaterally. No wheezes HEART: Regular rate and rhythm. Normal S1 and S2, without murmurs ABD: Abdomen soft, nontender. Bowel sounds present EXT: No clubbing cyanosis or edema NEURO: Alert and oriented to person, follows commands Vital Signs (last 8hr) Date Time Temp Pulse Resp B/P (MAP) Pulse Ox O2 Delivery O2 Flow Rate FiO2 01/06/25 08:00 97.0 61 18 120/60 96 Room Air LABS: Hematology Labs: Test 01/06/25 05:26 Range/Units White Blood Count 6.8 4.8-10.8 K/uL Red Blood Count 3.63 L 4.00-5.50 MIL/uL Hemoglobin 11.6 L 12.0-16.0 g/dL Hematocrit 34.8 L 36-48 % Mean Corpuscular Volume 95.9 79-99 fL Mean Corpuscular Hemoglobin 32.0 27.0-33.0 pg Mean Corpuscular Hemoglobin Concent 33.3 32.0-36.0 g/dL Red Cell Distribution Width 13.0 11.0-15.5 % Platelet Count 171 130-400 K/uL Mean Platelet Volume 8.7 7.5-10.5 fL Nucleated Red Blood Cells 0.0 0.0-0.19 % Chemistry Labs: Test 01/06/25 05:26 01/05/25 05:42 01/04/25 15:39 Range/Units Sodium Level 141 136-145 mmol/L Potassium Level 4.2 3.5-5.1 mmol/L Chloride Level 111 101-111 mmol/L Carbon Dioxide Level 26 21-32 mmol/L Blood Urea Nitrogen 9 7-18 mg/dL Creatinine 0.6 0.5-1.0 mg/dL Glomerular Filtration Rate Calc 97 >90 mL/min Random Glucose 90 70-105 mg/dL Total Calcium 8.4 L 8.5-10.1 mg/dL Magnesium Level 1.90 1.80-2.40 mg/dL Total Bilirubin 0.8 0.2-1.0 mg/dL Aspartate Amino Transf (AST/SGOT) 16 10-37 U/L Alanine Aminotransferase (ALT/SGPT) 11 L 12-78 U/L Alkaline Phosphatase 71 50-136 U/L Total Protein 6.1 6.0-8.3 g/dL Albumin 2.8 L 3.5-5.0 g/dL Whole Blood Glucose 73 70-110 MG/DL DIAGNOSTICS / RADIOLOGY RESULTS: NA PLAN NEURO: Minimize central acting medications as possible. Maintain fall precautions, adequate lighting during the day PULMONARY: Supplemental 02 as needed. Maintain aspiration precautions at all times CARDIOVASCULAR: Follow hemodynamics. Vital signs per facility protocol GI & NUTRITION: Continue with nutritional support. Continue stool softeners and laxatives as needed. KIDNEYS & ELECTROLYTES: Strict monitoring of intake, output and overall fluid balance. Avoid nephrotoxic medications to the extent possible. Medications to be dosed according to renal function. Monitor electrolytes and replace as needed ENDOCRINE: Maintain blood glucose between 100-180 at all times. Hypoglycemia protocol in place INFECTIOUS DISEASE: Trend temperature, WBC and procalcitonin level Follow cultures, deescalate antibiotics as soon as possible. Panculture if new onset fever ONCOLOGY/HEMATOLOGY/COAGULATION: Monitor for s/s of bleeding Monitor hemoglobin, coagulation studies as needed SKIN: Pressure ulcer prevention per facility protocol Specialty mattress ORTHO/REHAB: Continue PT/OT Prophylaxis: Continue GI and DVT prophylaxis. SCD, no AC due to GI bleed Code Status: Full Resuscitation Disposition: WILLIS HASSAN NP Jan 06, 2025 11:31
[2025-01-06 11:45] VITALS: BP 123/64; PULSE 67; RESP 18; TEMP 98
--- NOTE | 2025-01-06 12:30 | NUR ---
TRANSFER REQUEST TO [facility] FOR IVC FILTER CALL PLACED TO [facility] [employer]ITY OFFICER SPOKE WITH [facility] WHICH STATES IR DOCTOR OUT TILL THE . WILLIS LITTLE MADE AWARE SO PT WILL STAY HERE TILL THURSDAY FOR THE IVC FILTER. CHARGE NURSE MADE AWARE AND ORDER TO BE CHANGE FOR THURSDAY, KANE LOCKE
[2025-01-06 16:00] VITALS: BP 125/47; PULSE 62; RESP 18; TEMP 97.4
[2025-01-06 19:00] VITALS: BP 139/70; PULSE 71; RESP 20; TEMP 98.5
[2025-01-06 20:45] VITALS: O2SAT 93
[2025-01-07] VITALS (8 sets, daily range): BP systolic 113–162; BP diastolic 49–68; PULSE 61–71; RESP 18–20; TEMP 97.6–98.6; O2SAT 93–97
--- NOTE | 2025-01-07 11:25 | PN ---
[facility] PROGRESS NOTE Date Patient Seen: Jan 07, 2025 Time of Visit: 11:25 Supervising Physician: Dr. Mikey Gleason Primary Care Physician: Dr. Shahla Acevedo Inpatient Consults: [Dr. 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 AAOX3. States she is tolerating high fiber diet. No episodes of melena or hematochezia reported. Pending for IR to insert IVC filter which will likely be inserted until Thursday due to no IR available. PLAN: Bedrest for now until IVC filter is inserted IVC filter insertion by IR Continue IV Rocephin and Flagyl for intra-abdominal coverage (Day #5) Continue on high fiber diet Consult oncology/hematology for AC recommendations Transfuse if Hg drops below 7 Avoid NSAIDs and blood thinner, hold Xarelto at this time Follow GI recommendations Manage abdominal pain and N/V PRN IV Protonix BID REVIEW OF SYSTEMS: 12 point ROS reviewed with patient. Pertinent positives mentioned above. Otherwise negative. PHYSICAL EXAM: GENERAL: alert, awake oriented x 3 HEENT: EOMI, Sclera non icteric, moist mucosa NECK: Supple, no JVD, trachea midline LUNGS: Clear breath sounds bilaterally. No wheezes HEART: Regular rate and rhythm. Normal S1 and S2, without murmurs ABD: Abdomen soft, nontender. Bowel sounds present EXT: No clubbing cyanosis or edema NEURO: Alert and oriented to person, follows commands Vital Signs (last 8hr) Date Time Temp Pulse Resp B/P (MAP) Pulse Ox O2 Delivery O2 Flow Rate FiO2 01/07/25 08:25 97.9 63 18 162/61 Room Air 01/07/25 04:00 97.5 67 20 144/67 95 Room Air LABS: Hematology Labs: Test 01/06/25 05:26 Range/Units White Blood Count 6.8 4.8-10.8 K/uL Red Blood Count 3.63 L 4.00-5.50 MIL/uL Hemoglobin 11.6 L 12.0-16.0 g/dL Hematocrit 34.8 L 36-48 % Mean Corpuscular Volume 95.9 79-99 fL Mean Corpuscular Hemoglobin 32.0 27.0-33.0 pg Mean Corpuscular Hemoglobin Concent 33.3 32.0-36.0 g/dL Red Cell Distribution Width 13.0 11.0-15.5 % Platelet Count 171 130-400 K/uL Mean Platelet Volume 8.7 7.5-10.5 fL Nucleated Red Blood Cells 0.0 0.0-0.19 % Chemistry Labs: Test 01/06/25 05:26 Range/Units Sodium Level 141 136-145 mmol/L Potassium Level 4.2 3.5-5.1 mmol/L Chloride Level 111 101-111 mmol/L Carbon Dioxide Level 26 21-32 mmol/L Blood Urea Nitrogen 9 7-18 mg/dL Creatinine 0.6 0.5-1.0 mg/dL Glomerular Filtration Rate Calc 97 >90 mL/min Random Glucose 90 70-105 mg/dL Total Calcium 8.4 L 8.5-10.1 mg/dL Magnesium Level 1.90 1.80-2.40 mg/dL DIAGNOSTICS / RADIOLOGY RESULTS: [ ] PLAN NEURO: Minimize central acting medications as possible. Maintain fall precautions, adequate lighting during the day PULMONARY: Supplemental 02 as needed. Maintain aspiration precautions at all times CARDIOVASCULAR: Follow hemodynamics. Vital signs per facility protocol GI & NUTRITION: Continue with nutritional support. Continue stool softeners and laxatives as needed. KIDNEYS & ELECTROLYTES: Strict monitoring of intake, output and overall fluid balance. Avoid nephrotoxic medications to the extent possible. Medications to be dosed according to renal function. Monitor electrolytes and replace as needed ENDOCRINE: Maintain blood glucose between 100-180 at all times. Hypoglycemia protocol in place INFECTIOUS DISEASE: Trend temperature, WBC and procalcitonin level Follow cultures, deescalate antibiotics as soon as possible. Panculture if new onset fever ONCOLOGY/HEMATOLOGY/COAGULATION: Monitor for s/s of bleeding Monitor hemoglobin, coagulation studies as needed SKIN: Pressure ulcer prevention per facility protocol Specialty mattress ORTHO/REHAB: Continue PT/OT Prophylaxis: Continue GI and DVT prophylaxis. SCD, no AC due to GI bleed Code Status: Full Resuscitation Disposition: TBWILLIS KELLER NP Jan 07, 2025 11:25
--- NOTE | 2025-01-07 21:47 | PN ---
HISTORY OF PRESENT ILLNESS: This is a 69-year-old female with a history of hypercoagulable condition, pulmonary embolism. Unfortunately, she has been having GI bleeding. She could not be anticoagulated. Anticoagulation therapy with Xarelto remains on hold. The patient has GI bleeding, which has subsequently subsided or improved. Plan is to have an IVC filter placed next week. REVIEW OF SYSTEMS: GENERAL: Denies any weakness or fatigue. NECK: Denies any neck pain or neck stiffness. RESPIRATORY: Denies any cough, sputum, hemoptysis. CARDIOVASCULAR: Denies any chest pain, palpitations, orthopnea. GASTROINTESTINAL: Denies nausea or vomiting. PHYSICAL EXAMINATION: GENERAL: On examination, this is a 69-year-old female, not in any respiratory distress. VITAL SIGNS: Temperature 97.9, pulse 66, respirations 18, blood pressure 113/63. HEAD AND NECK: Sclerae are anicteric. Neck supple. No lymphadenopathy. LUNGS: Good air entry bilaterally. CARDIOVASCULAR: S1 and S2 audible. No added sounds. ABDOMEN: Soft, nontender. EXTREMITIES: No edema. No signs of DVT. RESULTS REVIEWED: WBC 6.8, hemoglobin 11.6, platelet count 171,000. BUN 9, creatinine 0.6. ASSESSMENT AND PLAN: * Hypercoagulable condition with history of pulmonary embolism. Unfortunately, has GI bleeding, could not be anticoagulated. Xarelto remains on hold. * To prevent any further embolic phenomenon, the patient will require IVC filter placement, which has been planned. * Continue all supportive care. TID: [id number] RECEIPT: [id number] [facility]
[2025-01-08 00:13] VITALS: BP 116/58; PULSE 66; RESP 19; TEMP 98.3
[2025-01-08 04:06] VITALS: BP 126/71; PULSE 67; RESP 18; TEMP 97.7
[2025-01-08 06:32] LABS: IMMATURE GRANULOCYTE ABSOLUTE 0.03 K/uL (0-1); NUCLEATED RED BLOOD CELLS 0.0 % (0.0-0.19); PLATELET COUNT (AUTO) 158 K/uL (130-400); RED BLOOD CELL COUNT(AUTO) 3.69 MIL/uL (4.00-5.50); RED CELL DISTRIBUTION WIDTH 13.5 % (11.0-15.5); WHITE BLOOD COUNT (AUTO) 7.6 K/uL (4.8-10.8)
[2025-01-08 08:24] VITALS: BP 133/66; PULSE 60; RESP 18; TEMP 97.7
--- NOTE | 2025-01-08 10:53 | PN ---
[facility] PROGRESS NOTE Date Patient Seen: Jan 08, 2025 Time of Visit: 10:53 Supervising Physician: Dr. Jose Langley Primary Care Physician: Dr. Shahla Acevedo Inpatient Consults: [Dr. 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 AAOX3. States she is tolerating high fiber diet. No episodes of melena or hematochezia reported. Pending for IR to insert IVC filter which will likely be inserted until Thursday due to no IR available. Had regular BM today. PLAN: Bedrest for now until IVC filter is inserted IVC filter insertion by IR Continue IV Rocephin and Flagyl for intra-abdominal coverage (Day #6) Continue on high fiber diet Consult oncology/hematology for AC recommendations Transfuse if Hg drops below 7 Avoid NSAIDs and blood thinner, hold Xarelto at this time Follow GI recommendations Manage abdominal pain and N/V PRN IV Protonix BID REVIEW OF SYSTEMS: 12 point ROS reviewed with patient. Pertinent positives mentioned above. Otherwise negative. PHYSICAL EXAM: GENERAL: alert, awake oriented x 3 HEENT: EOMI, Sclera non icteric, moist mucosa NECK: Supple, no JVD, trachea midline LUNGS: Clear breath sounds bilaterally. No wheezes HEART: Regular rate and rhythm. Normal S1 and S2, without murmurs ABD: Abdomen soft, nontender. Bowel sounds present EXT: No clubbing cyanosis or edema NEURO: Alert and oriented to person, follows commands Vital Signs (last 8hr) Date Time Temp Pulse Resp B/P (MAP) Pulse Ox O2 Delivery O2 Flow Rate FiO2 01/08/25 08:24 97.7 60 18 133/66 91 Room Air 01/08/25 04:06 97.7 67 18 126/71 94 Room Air LABS: Hematology Labs: Test 01/08/25 06:01 Range/Units White Blood Count 7.6 4.8-10.8 K/uL Red Blood Count 3.69 L 4.00-5.50 MIL/uL Hemoglobin 11.8 L 12.0-16.0 g/dL Hematocrit 36.0 36-48 % Mean Corpuscular Volume 97.6 79-99 fL Mean Corpuscular Hemoglobin 32.0 27.0-33.0 pg Mean Corpuscular Hemoglobin Concent 32.8 32.0-36.0 g/dL Red Cell Distribution Width 13.5 11.0-15.5 % Platelet Count 158 130-400 K/uL Mean Platelet Volume 9.2 7.5-10.5 fL Immature Granulocyte % (Auto) 0.4 0-1 % Neutrophils (%) (Auto) 53.7 40.0-77.0 % Lymphocytes (%) (Auto) 33.7 21.0-51.0 % Monocytes (%) (Auto) 9.2 3.0-13.0 % Eosinophils (%) (Auto) 2.6 0.0-8.0 % Basophils (%) (Auto) 0.4 0.0-5.0 % Neutrophils # (Auto) 4.1 1.8-7.7 K/uL Lymphocytes # (Auto) 2.6 1.0-4.8 K/uL Monocytes # (Auto) 0.7 0.1-1.0 K/uL Eosinophils # (Auto) 0.20 0.00-0.70 K/uL Basophils # (Auto) 0.03 0.00-0.20 K/uL Absolute Immature Granulocyte (auto 0.03 0-1 K/uL Nucleated Red Blood Cells 0.0 0.0-0.19 % DIAGNOSTICS / RADIOLOGY RESULTS: [ ] PLAN NEURO: Minimize central acting medications as possible. Maintain fall precautions, adequate lighting during the day PULMONARY: Supplemental 02 as needed. Maintain aspiration precautions at all times CARDIOVASCULAR: Follow hemodynamics. Vital signs per facility protocol GI & NUTRITION: Continue with nutritional support. Continue stool softeners and laxatives as needed. KIDNEYS & ELECTROLYTES: Strict monitoring of intake, output and overall fluid balance. Avoid nephrotoxic medications to the extent possible. Medications to be dosed according to renal function. Monitor electrolytes and replace as needed ENDOCRINE: Maintain blood glucose between 100-180 at all times. Hypoglycemia protocol in place INFECTIOUS DISEASE: Trend temperature, WBC and procalcitonin level Follow cultures, deescalate antibiotics as soon as possible. Panculture if new onset fever ONCOLOGY/HEMATOLOGY/COAGULATION: Monitor for s/s of bleeding Monitor hemoglobin, coagulation studies as needed SKIN: Pressure ulcer prevention per facility protocol Specialty mattress ORTHO/REHAB: Continue PT/OT Prophylaxis: Continue GI and DVT prophylaxis. SCD, no AC due to GI bleed Code Status: Full Resuscitation Disposition: WILLIS HASSAN NP Jan 08, 2025 10:53
[2025-01-08 12:00] VITALS: BP 119/60; PULSE 60; RESP 18; TEMP 98.2
--- NOTE | 2025-01-08 12:58 | PN ---
HISTORY OF PRESENT ILLNESS: This is a 69-year-old female with a history of hypercoagulable condition, pulmonary embolism. Unfortunately, she has GI bleeding. She is not a candidate for anticoagulation therapy. Xarelto remains on hold. The patient is being scheduled for IVC filter placement tomorrow. REVIEW OF SYSTEMS: GENERAL: She denies any weakness, tiredness, or fatigue. NECK: Denies any neck pain or neck stiffness. RESPIRATORY: Denies any cough, sputum or hemoptysis. CARDIOVASCULAR: Denies any chest pain, palpitations, or orthopnea. GASTROINTESTINAL: Denies nausea or vomiting. PHYSICAL EXAMINATION: GENERAL: This is a 69-year-old female, not in any distress. VITAL SIGNS: Temperature 97.7, pulse 60, respirations 18, blood pressure 133/66. HEENT: Sclerae are anicteric. NECK: Supple. No lymphadenopathy. LUNGS: Good air entry bilaterally. CARDIOVASCULAR: S1 and S2 audible. No added sound. ABDOMEN: Soft, nontender. EXTREMITIES: No edema. No signs of DVTs. RESULTS REVIEW: WBC 7.6, hemoglobin 11.8, platelet count 158,000. ASSESSMENT AND PLAN: * Hypercoagulable condition with pulmonary embolism. The patient is not a candidate for anticoagulation therapy with GI bleeding. Xarelto remains on hold. * To prevent any further thromboembolic phenomenon, she will be requiring IVC filter placement, which is scheduled tomorrow morning. * Continue all supportive care. TID: [id number] RECEIPT: [id number]
[2025-01-08 18:39] VITALS: BP 125/82; PULSE 68; RESP 18; TEMP 98.2
[2025-01-08 19:00] VITALS: BP 128/66; PULSE 64; RESP 20; TEMP 98.1
[2025-01-09] VITALS (13 sets, daily range): BP systolic 106–155; BP diastolic 55–78; PULSE 54–74; RESP 18–20; TEMP 97.6–98.3
[2025-01-09 06:06] LABS: IMMATURE GRANULOCYTE ABSOLUTE 0.01 K/uL (0-1); NUCLEATED RED BLOOD CELLS 0.0 % (0.0-0.19); PLATELET COUNT (AUTO) 159 K/uL (130-400); RED BLOOD CELL COUNT(AUTO) 3.74 MIL/uL (4.00-5.50); RED CELL DISTRIBUTION WIDTH 13.5 % (11.0-15.5); WHITE BLOOD COUNT (AUTO) 6.5 K/uL (4.8-10.8)
[2025-01-09 06:28] LABS: ASPARTATE AMINOTRANSFERASE 31.0 U/L (10-37); CREATININE 0.8 mg/dL (0.5-1.0); GLOMERULAR FILTR. RATE CALC 79.0 mL/min (>90); GLUCOSE,RANDOM 90.0 mg/dL (70-105); SODIUM SERUM 143.0 mmol/L (136-145); TOTAL PROTEIN, SERUM 5.7 g/dL (6.0-8.3); UREA NITROGEN, BLOOD 10.0 mg/dL (7-18)
--- NOTE | 2025-01-09 08:29 | PN ---
LOCATION: [facility] - [place] SUBJECTIVE: The patient did very well over the weekend. No bleeding or bruising. She admitted with GI bleed, ____ home, pending an IVC filter. REVIEW OF SYSTEMS: Negative. PHYSICAL EXAMINATION: GENERAL: Shows an older woman, no distress whatsoever. VITAL SIGNS: Blood pressure 137/65, pulse 61, respirations 20. HEENT: Benign. CHEST: Clear. ABDOMEN: Soft. EXTREMITIES: No edema. NEUROLOGIC: She is awake and oriented. IMPRESSION: * Hypercoagulable state. * Major GI bleed. * DVT. PLAN: Agree with IVC filter placement today. If there is no further bleeding, she can go home and follow up in our office in a week. When she recovers, she will need long-term anticoagulation. TID: [id number] RECEIPT: [id number]
[2025-01-09] MEDS ORDERED: IOHEXOL 350 MG/ML 100ML INFUS..BTL IV ONE (08:40)
[2025-01-09] MEDS ORDERED: HEParin-NS 1,000 UNIT/500 ML 500 ML IV ONE (08:40)
[2025-01-09] MEDS ORDERED: LIDOCAINE HCL 400MG/20ML VIAL ONE ×2 (08:40→09:37)
[2025-01-09] MEDS ORDERED: MIDAZOLAM HCL 1 MG/ML 2ML VIAL ONE (09:13)
--- NOTE | 2025-01-09 14:13 | CCATH ---
PROCEDURE: Placement of left femoral vein approach IVC filter under fluoroscopy and ultrasound guidance. DESCRIPTION OF PROCEDURE: After both groins were prepped and draped in the usual sterile technique, the right inguinal region ____ under ultrasound guidance and fluoroscopy guidance. Attempts were made to access the femoral vein, but unsuccessful. Therefore, from the left femoral vein, which was accessed under ultrasound and fluoroscopy guidance, an angiographic wire was advanced to the IVC. Through this, an 8-Ethiopian sheath was introduced. Through the 8-Ethiopian sheath, an IVC gram was performed. The renal vein was localized. Over the sheath, a Vaishali filter was deployed in the infrarenal portion of the IVC. Followup IVC gram demonstrated the catheter to be in satisfactory position. After obtaining hemostasis, the patient was transferred to the floor. IMPRESSION: Deployment of infrarenal IVC Vaishali filter, which appears to be in satisfactory position. TID: [id number] RECEIPT: [id number]
--- NOTE | 2025-01-09 15:23 | DS ---
[facility] DISCHARGE SUMMARY Date Patient Seen: Jan 09, 2025 Time of Visit: 15:23 Supervising Physician: Dr. Whit Duran Primary Care Physician: Dr. Shahla Acevedo Inpatient Consults: [Dr. 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 Patient claims that in the beginning, she had been having black stool now she noticed it has become red with an average of 2 to 3 times a day of bowel movement. Pertinent positives include nausea and dizziness. Significant negatives are fever, chills, vomiting, abdominal pain , hemorrhoids or syncope. At the ED, her preliminary lab works were unremarkable, hemoglobin stable. However her FOBT was positive for occult. CT AP was significant for acute sigmoid diverticulitis without abscess or perforation. We will start the patient on IV Rocephin and Flagyl. Physical assessment was unrevealing without abdominal tenderness, signs of ischemia or peritonitis. Goals of care were discussed with the patient verbalizes understanding and agreement. HOSPITAL COURSE: Patient was admitted due to hematochezia and melena. She was found to have diverticulitis and was started on IV ABX. GI was consulted but no procedures at this time. Patient had history of persistent DVT and PE and had been on Xarelto for three years. Per daughter, patient is noncompliant with medications. Hematology recommended IVC filter to due to recurrent DVT. PE was ruled out by CTA chest. Patient agreed for IVC filter, S/P insertion today. Right groin intact. Stable for discharge. States she is ready to go home. Denies any abdominal pain, nausea or vomiting. RX for levaquin and Flagyl sent to pharmacy for 4 more days to complete 10 days, she received 6 days of IV ABX. Discharge instructions given to patient. verbalized understanding. Advised to follow up with GI, hematology and PCP. New Medications: Levofloxacin (Levaquin 750Mg Tabs) 750 Mg Tablet 750 MG PO DAILY for 4 Days, #4 TAB Metronidazole (Metronidazole) 500 Mg Tablet 1 TAB PO BID for 4 Days, #14 TAB 0 Refills Continued Medications: Alendronate Sodium (Alendronate Sodium) 70 Mg Tablet 1 TAB PO QWEEK for 28 Days, #4 TAB 0 Refills in the morning, at least 30 minutes before the first food, beverage, or medication of the day Atorvastatin Calcium (Lipitor) 10 Mg Tab 1 TAB PO HS for 30 Days, #30 TAB 0 Refills Buspirone HCl (Buspirone HCl) 10 Mg Tablet 1 TAB PO BID for 30 Days, #60 TAB 0 Refills Diltiazem HCl (Diltiazem ER) 240 Mg Cap.er.deg 1 CAP PO DAILY for 30 Days, #30 CAP 0 Refills [Ergocalciferol] () 1.25 MG PO QWEEK Esomeprazole Magnesium (Esomeprazole Magnesium) 40 Mg Capsule.dr 1 CAP PO DAILY for 30 Days, #30 CAP 0 Refills [Folate] () 400 MG PO DAILY Gabapentin (Neurontin) 300 Mg Capsule 1 CAP PO TID for 30 Days, #90 CAP 0 Refills Hydrochlorothiazide (Hydrochlorothiazide) 12.5 Mg Tablet 1 TAB PO DAILY PRN for IF SBP GREATER THAN 180 for 30 Days, #30 TAB 0 Refills Losartan Potassium (Losartan Potassium) 100 Mg Tablet 1 TAB PO HS for 30 Days, #30 TAB 0 Refills Mecobalamin (B12 Active) 1,000 Mcg Tab.chew 1 TAB PO DAILY for 30 Days, #30 TAB 0 Refills Discontinued Medications: Rivaroxaban (Xarelto) 20 Mg Tablet 1 TAB PO DAILY for 30 Days, #30 TAB 0 Refills with food PHYSICAL EXAM: GENERAL: alert, awake oriented x 3 HEENT: EOMI, Sclera non icteric, moist mucosa NECK: Supple, no JVD, trachea midline LUNGS: Clear breath sounds bilaterally. No wheezes HEART: Regular rate and rhythm. Normal S1 and S2, without murmurs ABD: Abdomen soft, nontender. Bowel sounds present EXT: No clubbing cyanosis or edema NEURO: Alert and oriented to person, follows commands FOLLOW-UP: Follow-up with PCP in 2-3 days\ With GI, hematology RECOMMENDATIONS: See Discharge Instructions This case was seen and discussed with my supervising physician. More than 30 minutes spent on discharge process, including evaluation of the patient, discussion with nursing staff, medication reconciliation and follow-up appointments WILLIS HENDRICKS NP Jan 09, 2025 15:23
[2025-01-09] MEDS ORDERED: METR-172 PO (23:52)
[2025-01-09] MEDS ORDERED: LEVO750T68 PO (23:52)
== END 2025-01-09 19:15 | disposition home or self-care (01) | DRG 378 ==
LOC: EDH 17:00 → EDHIP 22:24 → OBSVTOIN 22:24 → 3CH 23:54
PROVIDERS: ADMIT Internal Medicine; ATTEND Internal Medicine
PROC: 06H03DZ Insertion of Intraluminal Device into Inferior Vena Cava, Percutaneous Approach (ICD-10-PCS; principal; 2025-01-09)
DX: K57.33 Diverticulitis of large intestine without perforation or abscess with bleeding (principal); D68.69 Other thrombophilia; I82.431 Acute embolism and thrombosis of right popliteal vein; I82.411 Acute embolism and thrombosis of right femoral vein; E66.01 Morbid (severe) obesity due to excess calories; I10 Essential (primary) hypertension; N30.90 Cystitis, unspecified without hematuria; K44.9 Diaphragmatic hernia without obstruction or gangrene; E78.00 Pure hypercholesterolemia, unspecified; F41.9 Anxiety disorder, unspecified; K21.9 Gastro-esophageal reflux disease without esophagitis; M79.7 Fibromyalgia; Z79.899 Other long term (current) drug therapy; Z80.0 Family history of malignant neoplasm of digestive organs; Z86.711 Personal history of pulmonary embolism; Z86.718 Personal history of other venous thrombosis and embolism; Z90.49 Acquired absence of other specified parts of digestive tract; Z91.148 Patient's other noncompliance with medication regimen for other reason; Z95.828 Presence of other vascular implants and grafts; Z68.33 Body mass index [BMI] 33.0-33.9, adult
CPT/HCPCS: 36415; 37191; 71270; 74177; 80048; 80053; 81001; 82270; 82948; 83540; 83550; 83735; 84100; 84484; 85014; 85018; 85025; 85027; 85610; 85730; 86850; 86900; 86901; 93005; 93970; 96365; 96375; 97161; 99156; 99157; 99285; C1769; G0378; J0696; J1644; J2250; J2470; J3010; J3490; J7030; Q9967; C1880; C1894; Q9965